=== PATIENT | female | born 1975 | race Two or more races ===

== ENCOUNTER 2019-08-08 18:00 | Inpatient (IN) | payer SELFPAY ==
[~2019-08-08] VITALS: Ht 162.6 cm; Wt 71.7 kg
[2019-08-08] MEDS ORDERED: IV NORMAL SALINE 1000ML BAG 1,000 ML IV SCH (18:54)
[2019-08-08] MEDS ORDERED: ONDANSETRON PF 4 MG/2 ML VIAL. IV ONE (19:00)
--- NOTE | 2019-08-08 19:02 | PHYS DOC ---
Adult General Chief Complaint Chief Complaint: ABDOMINAL PAIN HPI HPI Patient is a 44-year-old female who presents with complaint of right-sided abdominal pain that started yesterday. Patient rates pain at a 10 out of 10 and states the pain is worsened with movement. She admits to nausea but is had no vomiting and also has anorexia. She states the pain radiates into her back. Patient is not sure whether or not she has been running a fever. She denies any chest pain or shortness of breath. She states that nothing is improving her symptoms.[] Review of Systems Review of Systems Constitutional: Denies fever or chills [] Respiratory: Denies cough or shortness of breath [] Cardiovascular: No additional information not addressed in HPI [] GI: Complains of abdominal pain with nausea. Denies vomiting or diarrhea [] : Denies dysuria or hematuria [] Musculoskeletal: Admits to right-sided back pain [] Integument: Denies rash or skin lesions [] Neurologic: Denies headache, focal weakness or sensory changes [] All other systems were reviewed and found to be within normal limits, except as documented in this note. Current Medications Current Medications Current Medications Medications (Trade) Dose Ordered Sig/Sánchez Start Time Stop Time Status Last Admin Dose Admin Info (CONTRAST GIVEN -- Rx MONITORING) 1 each PRN DAILY PRN 08/08/19 20:15 08/10/19 20:14 Iohexol (Omnipaque 300 Mg/ml) 75 ml 1X ONCE 08/08/19 20:15 08/08/19 20:16 DC 08/08/19 20:28 75 ML Morphine Sulfate (Morphine Sulfate) 4 mg PRN Q15MIN PRN 08/08/19 19:00 08/09/19 18:59 08/08/19 19:54 4 MG Ondansetron HCl (Zofran) 4 mg 1X ONCE 08/08/19 19:00 08/08/19 19:01 DC 08/08/19 19:18 4 MG Piperacillin Sod/ Tazobactam Sod 4.5 gm/Sodium Chloride 100 ml @ 200 mls/hr 1X ONCE 08/08/19 20:00 08/08/19 20:29 DC 08/08/19 19:47 200 MLS/HR Sodium Chloride 1,000 ml @ 1,000 mls/hr Q1H 08/08/19 18:54 08/08/19 19:53 DC 08/08/19 19:20 1,000 MLS/HR Allergies Allergies Allergies Coded Allergies Type Severity Reaction Last Updated Verified No Known Drug Allergies 08/08/19 No Physical Exam Physical Exam Constitutional: Well developed, well nourished, no acute distress, non-toxic appearance. [] HENT: Normocephalic, atraumatic, bilateral external ears normal, oropharynx moist, no oral exudates, nose normal. [] Eyes: PERRLA, EOMI, conjunctiva normal, no discharge. [] Neck: Normal range of motion, no tenderness, supple. [] Cardiovascular: Regular rate and rhythm[] Lungs & Thorax: Bilateral breath sounds clear to auscultation [] Abdomen: Bowel sounds diminished, soft, with moderate right lower quadrant tenderness. [] Skin: Warm, dry, no erythema, no rash. [] Extremities: No tenderness, no cyanosis, no clubbing, ROM intact. [] Neurologic: Alert and oriented X 3, no focal deficits noted. [] Current Patient Data Vital Signs Vital Signs Date Time Temp Pulse Resp B/P (MAP) Pulse Ox O2 Delivery O2 Flow Rate FiO2 08/08/19 20:24 86 23 146/68 (94) 87 Room Air 08/08/19 18:52 99.0 99.0 Lab Values Laboratory Tests Test 08/08/19 19:05 08/08/19 19:14 08/08/19 19:32 08/08/19 19:40 White Blood Count 20.3 x10^3/uL (4.0-11.0) H Red Blood Count 4.53 x10^6/uL (3.50-5.40) Hemoglobin 12.8 g/dL (12.0-15.5) Hematocrit 38.1 % (36.0-47.0) Mean Corpuscular Volume 84 fL (79-100) Mean Corpuscular Hemoglobin 28 pg (25-35) Mean Corpuscular Hemoglobin Concent 34 g/dL (31-37) Red Cell Distribution Width 16.9 % (11.5-14.5) H Platelet Count 398 x10^3/uL (140-400) Neutrophils (%) (Auto) 86 % (31-73) H Lymphocytes (%) (Auto) 8 % (24-48) L Monocytes (%) (Auto) 6 % (0-9) Eosinophils (%) (Auto) 0 % (0-3) Basophils (%) (Auto) 0 % (0-3) Neutrophils # (Auto) 17.4 x10^3/uL (1.8-7.7) H Lymphocytes # (Auto) 1.5 x10^3/uL (1.0-4.8) Monocytes # (Auto) 1.2 x10^3/uL (0.0-1.1) H Eosinophils # (Auto) 0.1 x10^3/uL (0.0-0.7) Basophils # (Auto) 0.0 x10^3/uL (0.0-0.2) Segmented Neutrophils % 84 % (35-66) H Band Neutrophils % 1 % (0-9) Lymphocytes % 7 % (24-48) L Monocytes % 8 % (0-10) Toxic Granulation Slight Toxic Vacuolation Slight Platelet Estimate Adequate (ADEQUATE) Urine Collection Type Unknown Urine Color Yellow Urine Clarity Clear Urine pH 6.0 Urine Specific [place] 1.015 Urine Protein 30 mg/dL (NEG-TRACE) Urine Glucose (UA) Negative mg/dL (NEG) Urine Ketones (Stick) Negative mg/dL (NEG) Urine Blood Moderate (NEG) Urine Nitrite Negative (NEG) Urine Bilirubin Negative (NEG) Urine Urobilinogen Dipstick 1.0 mg/dL (0.2 mg/dL) Urine Leukocyte Esterase Large (NEG) Urine RBC Occ /HPF (0-2) Urine WBC >40 /HPF (0-4) Urine Squamous Epithelial Cells Mod /LPF Urine Bacteria Many /HPF (0-FEW) Urine Mucus Mod /LPF POC Urine HCG, Qualitative Hcg negative (Negative) Influenza Type A Antigen Negative (NEGATIVE) Influenza Type B Antigen Negative (NEGATIVE) Sodium Level 141 mmol/L (136-145) Potassium Level 3.7 mmol/L (3.5-5.1) Chloride Level 106 mmol/L (98-107) Carbon Dioxide Level 26 mmol/L (21-32) Anion Gap 9 (6-14) Blood Urea Nitrogen 9 mg/dL (7-20) Creatinine 0.6 mg/dL (0.6-1.0) Estimated GFR (Cockcroft-Gault) 108.1 BUN/Creatinine Ratio 15 (6-20) Glucose Level 112 mg/dL (70-99) H Calcium Level 8.2 mg/dL (8.5-10.1) L Total Bilirubin 0.5 mg/dL (0.2-1.0) Aspartate Amino Transferase (AST) 7 U/L (15-37) L Alanine Aminotransferase (ALT) 15 U/L (14-59) Alkaline Phosphatase 75 U/L (46-116) Total Protein 6.3 g/dL (6.4-8.2) L Albumin 2.9 g/dL (3.4-5.0) L Albumin/Globulin Ratio 0.9 (1.0-1.7) L Lipase 128 U/L (73-393) Laboratory Tests 08/08/19 19:05 Laboratory Tests 08/08/19 19:40 EKG EKG [] Radiology/Procedures Radiology/Procedures [] Impressions: PROCEDURE: CT ABD PELV W/ IV CONTRST ONLY Exam: CT abdomen and pelvis with contrast INDICATION: Abdominal pain TECHNIQUE: Sequential axial images through the abdomen and pelvis obtained following the administration of 75 mL of Omni 300 IV contrast. Sagittal and coronal reformatted images were reconstructed from the axial data and reviewed. Comparisons: None FINDINGS: Heart size is normal. No pericardial effusion. Strandy opacities at the dependent portion the lung bases likely representing atelectasis. No pleural effusion. Liver, spleen, pancreas, gallbladder and adrenals are unremarkable. Kidneys demonstrate symmetric enhancement. No perinephric inflammation or hydronephrosis. No renal or ureteral calculi are identified. Ureteral wall enhancement on the right is noted. Bladder is distended and appears thin-walled. Uterus is moderately enlarged. There is cystic change at the right adnexa. Small amount of free fluid is noted within the abdomen. Large and small bowel are unremarkable. Appendix is normal. No free intra-abdominal air. Abdominal aorta has a normal course and caliber. Abdominal vasculature is patent. No enlarged intra-abdominal lymph nodes are identified. No suspicious osseous lesions or acute fractures. IMPRESSION: 1. Cystic change at the right adnexa, likely follicular change within the right ovary. 2. Trace amount of free fluid at the pelvis, may be physiologic however nonspecific. Exposure: One or more of the following in the visualized dose reduction techniques were utilized for this examination: 1. Automated exposure control 2. Adjustment of the MA and/or KV according to patient size 3. Use of iterative of reconstructive technique Electronically signed by: Rachel Swift MD (08/08/2019 8:37 PM) [facility] DICTATED and SIGNED BY: RACHEL SWIFT MD DATE: 08/08/192036 Course & Med Decision Making Course & Med Decision Making Pertinent Labs and Imaging studies reviewed. (See chart for details) [] Dragon Disclaimer Dragon Disclaimer This electronic medical record was generated, in whole or in part, using a voice recognition dictation system. Departure Departure Impression: Primary Impression: Pyelonephritis Disposition: ADMITTED INPATIENT Admitting Physician: ROSALINDA (Dr. King) Condition: IMPROVED Referrals: VINCENZO TYLER (PCP) LYNDSAY LATHAM Jr., DO Aug 08, 2019 19:02
[2019-08-08 19:18] LABS: BASO % 0 % (0-3); EOS # 0.1 x10^3/uL (0.0-0.7); EOS % 0 % (0-3); HEMATOCRIT 38.1 % (36.0-47.0); HEMOGLOBIN 12.8 g/dL (12.0-15.5); LYMPH # 1.5 x10^3/uL (1.0-4.8); LYMPH % 8 % (24-48); MEAN CORPUSCULAR HEMOGLOBIN 28 pg (25-35); MEAN CORPUSCULAR HGB CONC 34 g/dL (31-37); MEAN CORPUSCULAR VOLUME 84 fL (79-100); MONO # 1.2 x10^3/uL (0.0-1.1); MONO % 6 % (0-9); NEUT # 17.4 x10^3/uL (1.8-7.7); NEUT % 86 % (31-73); PLATELET COUNT 398 x10^3/uL (140-400); RED BLOOD COUNT 4.53 x10^6/uL (3.50-5.40); RED CELL DISTRIBUTION WIDTH 16.9 % (11.5-14.5); WHITE BLOOD COUNT 20.3 x10^3/uL (4.0-11.0)
[2019-08-08] MEDS: MORPHINE SULFATE 4 MG/ML VIAL. IV/SQ PRN ×3 (19:19→19:54)
[2019-08-08 19:28] LABS: BILIRUBIN,URINE NEGATIVE (NEG); CLARITY,URINE CLEAR; COLOR,URINE YELLOW; NITRITE,URINE NEGATIVE (NEG); PROTEIN,URINE 30 mg/dL (NEG-TRACE)
[2019-08-08 19:34] LABS: BACTERIA,URINE MANY /HPF (0-FEW); RBC,URINE OCC /HPF (0-2); WBC,URINE >40 /HPF (0-4)
[2019-08-08 19:35] LABS: SQUAMOUS EPITHELIAL CELL,UR MOD /LPF
[2019-08-08 19:55] LABS: INFLUENZA A PATIENT NEGATIVE (NEGATIVE); INFLUENZA B PATIENT NEGATIVE (NEGATIVE)
[2019-08-08] MEDS ORDERED: PIPERACILLIN/TAZOBACTAM 4.5 GM in IV NORMAL SALINE 100ML 100 ML IV ONE (20:00)
[2019-08-08 20:04] LABS: CALCIUM 8.2 mg/dL (8.5-10.1); CREATININE 0.6 mg/dL (0.6-1.0); GFR 108.1; POTASSIUM 3.7 mmol/L (3.5-5.1)
[2019-08-08 20:09] LABS: ALBUMIN 2.9 g/dL (3.4-5.0); ALBUMIN/GLOBULIN RATIO 0.9 (1.0-1.7); TOTAL BILIRUBIN 0.5 mg/dL (0.2-1.0); TOTAL PROTEIN 6.3 g/dL (6.4-8.2)
[2019-08-08] MEDS ORDERED: IOHEXOL 300 MG/ML 100ML VIAL. IV ONE (20:15)
[2019-08-08] MEDS ORDERED: CONTRAST GIVEN. MC PRN (20:15)
--- NOTE | 2019-08-08 20:40 | RAD ---
Exam: CT abdomen and pelvis with contrast INDICATION: Abdominal pain TECHNIQUE: Sequential axial images through the abdomen and pelvis obtained following the administration of 75 mL of Omni 300 IV contrast. Sagittal and coronal reformatted images were reconstructed from the axial data and reviewed. Comparisons: None FINDINGS: Heart size is normal. No pericardial effusion. Strandy opacities at the dependent portion the lung bases likely representing atelectasis. No pleural effusion. Liver, spleen, pancreas, gallbladder and adrenals are unremarkable. Kidneys demonstrate symmetric enhancement. No perinephric inflammation or hydronephrosis. No renal or ureteral calculi are identified. Ureteral wall enhancement on the right is noted. Bladder is distended and appears thin-walled. Uterus is moderately enlarged. There is cystic change at the right adnexa. Small amount of free fluid is noted within the abdomen. Large and small bowel are unremarkable. Appendix is normal. No free intra-abdominal air. Abdominal aorta has a normal course and caliber. Abdominal vasculature is patent. No enlarged intra-abdominal lymph nodes are identified. No suspicious osseous lesions or acute fractures. IMPRESSION: 1. Cystic change at the right adnexa, likely follicular change within the right ovary. 2. Trace amount of free fluid at the pelvis, may be physiologic however nonspecific. Exposure: One or more of the following in the visualized dose reduction techniques were utilized for this examination: 1. Automated exposure control 2. Adjustment of the MA and/or KV according to patient size 3. Use of iterative of reconstructive technique Electronically signed by: Rachel Trent MD (08/08/2019 8:37 PM) [facility]
[2019-08-08 21:01] LABS: % BANDS 1 % (0-9); % LYMPHS 7 % (24-48); % MONOS 8 % (0-10); % SEGS 84 % (35-66); PLT ESTIMATE ADEQUATE (ADEQUATE); TOXIC GRANULATION SLIGHT; TOXIC VACUOLATION SLIGHT
[2019-08-08] MEDS ORDERED: ACETAMINOPHEN 325 MG TABLET. PO PRN (21:15)
[2019-08-08] MEDS ORDERED: ONDANSETRON PF 4 MG/2 ML VIAL. IV PRN (21:15)
[2019-08-08 22:25] VITALS: BP 95/43
[2019-08-09] MEDS: IV NORMAL SALINE 1000ML BAG 1,000 ML IV SCH ×3 (01:23→17:30)
[2019-08-09] MEDS: MORPHINE SULFATE 4 MG/ML VIAL. IV PRN ×2 (01:24→08:36)
[2019-08-09 03:32] VITALS: BP 110/46
[2019-08-09 04:33] LABS: BASO # 0.1 x10^3/uL (0.0-0.2); BASO % 0 % (0-3); EOS % 0 % (0-3); HEMATOCRIT 32.3 % (36.0-47.0); HEMOGLOBIN 10.7 g/dL (12.0-15.5); LYMPH # 1.3 x10^3/uL (1.0-4.8); LYMPH % 7 % (24-48); MEAN CORPUSCULAR HEMOGLOBIN 28 pg (25-35); MEAN CORPUSCULAR HGB CONC 33 g/dL (31-37); MEAN CORPUSCULAR VOLUME 85 fL (79-100); MONO # 1.1 x10^3/uL (0.0-1.1); MONO % 5 % (0-9); NEUT # 17.4 x10^3/uL (1.8-7.7); NEUT % 88 % (31-73); PLATELET COUNT 309 x10^3/uL (140-400); RED CELL DISTRIBUTION WIDTH 17.4 % (11.5-14.5); WHITE BLOOD COUNT 19.9 x10^3/uL (4.0-11.0)
[2019-08-09] MEDS ORDERED: GEMF600T8 PO (05:15)
[2019-08-09] MEDS ORDERED: FERR325T14 PO (05:15)
[2019-08-09] MEDS ORDERED: ERGO500027 PO (05:15)
[2019-08-09 05:24] LABS: CALCIUM 8.3 mg/dL (8.5-10.1); CREATININE 0.6 mg/dL (0.6-1.0); GFR 108.1; POTASSIUM 3.7 mmol/L (3.5-5.1)
[2019-08-09 07:00] VITALS: BP 95/44
[2019-08-09] MEDS ORDERED: ZOLPIDEM 5 MG TABLET. PO PRN (08:30)
[2019-08-09] MEDS: CELECOXIB 100 MG CAPSULE. PO SCH ×2 (08:35→21:19)
[2019-08-09] MEDS ORDERED: cefTRIAXone IV Push 1 GM VIAL. IVP SCH (09:00)
[2019-08-09] MEDS ORDERED: ERGOCALCIFEROL (VITAMIN D2) 50,000 UNIT CAPSULE. PO SCH (09:00)
[2019-08-09] MEDS: GEMFIBROZIL 600 MG TABLET. PO SCH ×2 (09:17→21:19)
--- NOTE | 2019-08-09 09:42 | PDOC1 ---
History and Physical Date of Admission Date of Admission DATE: 08/09/19 TIME: 09:37 Identification/Chief Complaint Chief Complaint left flank, pain, lower abd pain Source Source: Caregiver, Chart review, Patient History of Present Illness History of Present Illness Prev healthy, only takes dyslipidemia meds, 2 day hx left flank pain, suprapubic pain, some nausea but no emesis or fevers, CT shows non impressive findings (lacks perinephric stranding) But she does have UTI on UA and remarkable left fl ank tenderness. No PCN allergies, WIll give IVF, zosyn, pain med - she does meet criteria for sepsis with no organ dysfcn NO fevers, WBC 2os down to 18 overnight 2 MN stay, non tele bed. SHe speaks minimal japanese, dtrat bedside translates FULL CODE NEver happened before CT shows distended urinary bladder Past Medical History Cardiovascular: Hyperlipidemia Past Surgical History Past Surgical History: No pertinent history Family History Family History: Hypertension Social History Smoke: No ALCOHOL: none Drugs: None Current Problem List Problem List Problems Medical Problems: (1) Pyelonephritis Status: Acute Current Medications Current Medications Current Medications Morphine Sulfate (Morphine Sulfate) 4 mg PRN Q15MIN PRN IV/SQ PAIN GREATER THAN 3/10 Last administered on 08/08/19at 19:54; Start 08/08/19 at 19:00; Stop 08/09/19 at 18:59 Sodium Chloride 1,000 ml @ 1,000 mls/hr Q1H IV Last administered on 08/08/19at 19:20; Start 08/08/19 at 18:54; Stop 08/08/19 at 19:53; Status DC Ondansetron HCl (Zofran) 4 mg 1X ONCE IV Last administered on 08/08/19at 19:18; Start 08/08/19 at 19:00; Stop 08/08/19 at 19:01; Status DC Piperacillin Sod/ Tazobactam Sod 4.5 gm/Sodium Chloride 100 ml @ 200 mls/hr 1X ONCE IV Last administered on 08/08/19at 19:47; Start 08/08/19 at 20:00; Stop 08/08/19 at 20:29; Status DC Iohexol (Omnipaque 300 Mg/ml) 75 ml 1X ONCE IV Last administered on 08/08/19at 20:28; Start 08/08/19 at 20:15; Stop 08/08/19 at 20:16; Status DC Info (CONTRAST GIVEN -- Rx MONITORING) 1 each PRN DAILY PRN MC SEE COMMENTS; Start 08/08/19 at 20:15; Stop 08/10/19 at 20:14 Ondansetron HCl (Zofran) 4 mg PRN Q8HRS PRN IV NAUSEA/VOMITING 1ST CHOICE; Start 08/08/19 at 21:15; Stop 08/09/19 at 08:16; Status DC Morphine Sulfate (Morphine Sulfate) 4 mg PRN Q2HR PRN IV SEVERE PAIN 7-10 Last administered on 08/09/19 08:36; Start 08/08/19 at 21:15; Stop 08/09/19 at 21:14 Sodium Chloride 1,000 ml @ 100 mls/hr Q10H IV Last administered on 08/09/19at 09:22; Start 08/08/19 at 21:30; Stop 08/09/19 at 21:29 Acetaminophen (Tylenol) 650 mg PRN Q4HRS PRN PO FEVER Last administered on 08/09/19at 03:55; Start 08/08/19 at 21:15; Stop 08/09/19 at 21:14 Ondansetron HCl (Zofran) 4 mg PRN Q6HRS PRN IV NAUSEA/VOMITING 1ST CHOICE; Start 08/09/19 at 08:15 Ceftriaxone Sodium (Rocephin) 1 gm Q24H IVP Last administered on 08/09/19at 09:18; Start 08/09/19 at 09:00 Ergocalciferol (Vitamin D2) 50,000 unit WEEKLY PO Last administered on 1 at 08:35; Start 08/09/19 at 09:00 Ferrous Sulfate (Feosol) 325 mg HS PO ; Start 08/09/19 at 21:00 Gemfibrozil (Lopid) 600 mg BID PO Last administered on 08/09/19at 09:17; Start 08/09/19 at 09:00 Celecoxib (CeleBREX) 100 mg BID PO Last administered on 08/09/19at 08:35; Start 08/09/19 at 09:00 Acetaminophen/ Hydrocodone Bitart (Lortab 5/325) 1 tab PRN Q4HRS PRN PO MODER ATE PAIN; Start 08/09/19 at 08:30 Zolpidem Tartrate (Ambien) 5 mg PRN QHS PRN PO INSOMNIA; Start 08/09/19 at 08:30 Active Scripts Active Reported Gemfibrozil 600 Mg Tablet 600 Mg PO BID Vitamin D2 (Ergocalciferol (Vitamin D2)) 50,000 Unit Capsule 1 Cap PO WEEKLY 28 Days Ferrous Sulfate 325 Mg Tablet 1 Tab PO HS Allergies Allergies: Coded Allergies: No Known Drug Allergies (Unverified , 08/08/19) ROS Review of System as per hPI, rest 14 pt neg Physical Exam General: Alert, Oriented X3, Cooperative, No acute distress, Other (indiscomfort but not in distress- less interested in food) HEENT: Atraumatic, PERRLA Lungs: Clear to auscultation Heart: S1S2, RRR, no thrills, no rubs, no gallops, no murmurs Cardiovascular: S1, S2 Breasts: Normal, Rt breast nml w/o mass, Lt breast nml w/o mass, Nipples normal Abdomen: Normal bowel sounds, Soft, No hepatosplenomegaly, No masses, Other (left CVA tenderness) Rectal Exam: not examined PELVIC: Nml ext genitalia Extremities: No clubbing, No cyanosis, No edema, Normal pulses, No tenderness/swelling Skin: No rashes, No breakdown, No significant lesion Neuro: Normal gait, Normal speech, Strength at 5/5 X4 ext, Normal tone, Sensation intact, Cranial nerves 3-12 NL, Reflexes 2+ Psych/Mental Status: Mental status NL, Mood NL Vitals Vitals Vital Signs Date Time Temp Pulse Resp B/P (MAP) Pulse Ox O2 Delivery O2 Flow Rate FiO2 08/09/19 08:36 Room Air 08/09/19 07:00 97.9 68 16 95/44 (61) 97 97.9 Labs Labs Laboratory Tests Test 08/08/19 19:05 08/08/19 19:14 08/08/19 19:32 08/08/19 19:40 White Blood Count 20.3 x10^3/uL (4.0-11.0) Red Blood Count 4.53 x10^6/uL (3.50-5.40) Hemoglobin 12.8 g/dL (12.0-15.5) Hematocrit 38.1 % (36.0-47.0) Mean Corpuscular Volume 84 fL (79-100) Mean Corpuscular Hemoglobin 28 pg (25-35) Mean Corpuscular Hemoglobin Concent 34 g/dL (31-37) Red Cell Distribution Width 16.9 % (11.5-14.5) Platelet Count 398 x10^3/uL (140-400) Neutrophils (%) (Auto) 86 % (31-73) Lymphocytes (%) (Auto) 8 % (24-48) Monocytes (%) (Auto) 6 % (0-9) Eosinophils (%) (Auto) 0 % (0-3) Basophils (%) (Auto) 0 % (0-3) Neutrophils # (Auto) 17.4 x10^3/uL (1.8-7.7) Lymphocytes # (Auto) 1.5 x10^3/uL (1.0-4.8) Monocytes # (Auto) 1.2 x10^3/uL (0.0-1.1) Eosinophils # (Auto) 0.1 x10^3/uL (0.0-0.7) Basophils # (Auto) 0.0 x10^3/uL (0.0-0.2) Segmented Neutrophils % 84 % (35-66) Band Neutrophils % 1 % (0-9) Lymphocytes % 7 % (24-48) Monocytes % 8 % (0-10) Toxic Granulation Slight Toxic Vacuolation Slight Platelet Estimate Adequate (ADEQUATE) Urine Collection Type Unknown Urine Color Yellow Urine Clarity Clear Urine pH 6.0 Urine Specific [place] 1.015 Urine Protein 30 mg/dL (NEG-TRACE) Urine Glucose (UA) Negative mg/dL (NEG) Urine Ketones (Stick) Negative mg/dL (NEG) Urine Blood Moderate (NEG) Urine Nitrite Negative (NEG) Urine Bilirubin Negative (NEG) Urine Urobilinogen Dipstick 1.0 mg/dL (0.2 mg/dL) Urine Leukocyte Esterase Large (NEG) Urine RBC Occ /HPF (0-2) Urine WBC >40 /HPF (0-4) Urine Squamous Epithelial Cells Mod /LPF Urine Bacteria Many /HPF (0-FEW) Urine Mucus Mod /LPF Bedside Urine HCG, Qualitative Hcg negative (Negative) Influenza Type A Antigen Negative (NEGATIVE) Influenza Type B Antigen Negative (NEGATIVE) Sodium Level 141 mmol/L (136-145) Potassium Level 3.7 mmol/L (3.5-5.1) Chloride Level 106 mmol/L (98-107) Carbon Dioxide Level 26 mmol/L (21-32) Anion Gap 9 (6-14) Blood Urea Nitrogen 9 mg/dL (7-20) Creatinine 0.6 mg/dL (0.6-1.0) Estimated GFR (Cockcroft-Gault) 108.1 BUN/Creatinine Ratio 15 (6-20) Glucose Level 112 mg/dL (70-99) Calcium Level 8.2 mg/dL (8.5-10.1) Total Bilirubin 0.5 mg/dL (0.2-1.0) Aspartate Amino Transf (AST/SGOT) 7 U/L (15-37) Alanine Aminotransferase (ALT/SGPT) 15 U/L (14-59) Alkaline Phosphatase 75 U/L (46-116) Total Protein 6.3 g/dL (6.4-8.2) Albumin 2.9 g/dL (3.4-5.0) Albumin/Globulin Ratio 0.9 (1.0-1.7) Lipase 128 U/L (73-393) Test 08/09/19 03:50 White Blood Count 19.9 x10^3/uL (4.0-11.0) Red Blood Count 3.80 x10^6/uL (3.50-5.40) Hemoglobin 10.7 g/dL (12.0-15.5) Hematocrit 32.3 % (36.0-47.0) Mean Corpuscular Volume 85 fL (79-100) Mean Corpuscular Hemoglobin 28 pg (25-35) Mean Corpuscular Hemoglobin Concent 33 g/dL (31-37) Red Cell Distribution Width 17.4 % (11.5-14.5) Platelet Count 309 x10^3/uL (140-400) Neutrophils (%) (Auto) 88 % (31-73) Lymphocytes (%) (Auto) 7 % (24-48) Monocytes (%) (Auto) 5 % (0-9) Eosinophils (%) (Auto) 0 % (0-3) Basophils (%) (Auto) 0 % (0-3) Neutrophils # (Auto) 17.4 x10^3/uL (1.8-7.7) Lymphocytes # (Auto) 1.3 x10^3/uL (1.0-4.8) Monocytes # (Auto) 1.1 x10^3/uL (0.0-1.1) Eosinophils # (Auto) 0.0 x10^3/uL (0.0-0.7) Basophils # (Auto) 0.1 x10^3/uL (0.0-0.2) Sodium Level 139 mmol/L (136-145) Potassium Level 3.7 mmol/L (3.5-5.1) Chloride Level 104 mmol/L (98-107) Carbon Dioxide Level 25 mmol/L (21-32) Anion Gap 10 (6-14) Blood Urea Nitrogen 10 mg/dL (7-20) Creatinine 0.6 mg/dL (0.6-1.0) Estimated GFR (Cockcroft-Gault) 108.1 Glucose Level 108 mg/dL (70-99) Calcium Level 8.3 mg/dL (8.5-10.1) Laboratory Tests Test 08/08/19 19:05 08/08/19 19:14 08/08/19 19:32 08/08/19 19:40 White Blood Count 20.3 x10^3/uL (4.0-11.0) Red Blood Count 4.53 x10^6/uL (3.50-5.40) Hemoglobin 12.8 g/dL (12.0-15.5) Hematocrit 38.1 % (36.0-47.0) Mean Corpuscular Volume 84 fL (79-100) Mean Corpuscular Hemoglobin 28 pg (25-35) Mean Corpuscular Hemoglobin Concent 34 g/dL (31-37) Red Cell Distribution Width 16.9 % (11.5-14.5) Platelet Count 398 x10^3/uL (140-400) Neutrophils (%) (Auto) 86 % (31-73) Lymphocytes (%) (Auto) 8 % (24-48) Monocytes (%) (Auto) 6 % (0-9) Eosinophils (%) (Auto) 0 % (0-3) Basophils (%) (Auto) 0 % (0-3) Neutrophils # (Auto) 17.4 x10^3/uL (1.8-7.7) Lymphocytes # (Auto) 1.5 x10^3/uL (1.0-4.8) Monocytes # (Auto) 1.2 x10^3/uL (0.0-1.1) Eosinophils # (Auto) 0.1 x10^3/uL (0.0-0.7) Basophils # (Auto) 0.0 x10^3/uL (0.0-0.2) Segmented Neutrophils % 84 % (35-66) Band Neutrophils % 1 % (0-9) Lymphocytes % 7 % (24-48) Monocytes % 8 % (0-10) Toxic Granulation Slight Toxic Vacuolation Slight Platelet Estimate Adequate (ADEQUATE) Urine Collection Type Unknown Urine Color Yellow Urine Clarity Clear Urine pH 6.0 Urine Specific [place] 1.015 Urine Protein 30 mg/dL (NEG-TRACE) Urine Glucose (UA) Negative mg/dL (NEG) Urine Ketones (Stick) Negative mg/dL (NEG) Urine Blood Moderate (NEG) Urine Nitrite Negative (NEG) Urine Bilirubin Negative (NEG) Urine Urobilinogen Dipstick 1.0 mg/dL (0.2 mg/dL) Urine Leukocyte Esterase Large (NEG) Urine RBC Occ /HPF (0-2) Urine WBC >40 /HPF (0-4) Urine Squamous Epithelial Cells Mod /LPF Urine Bacteria Many /HPF (0-FEW) Urine Mucus Mod /LPF Bedside Urine HCG, Qualitative Hcg negative (Negative) Influenza Type A Antigen Negative (NEGATIVE) Influenza Type B Antigen Negative (NEGATIVE) Sodium Level 141 mmol/L (136-145) Potassium Level 3.7 mmol/L (3.5-5.1) Chloride Level 106 mmol/L (98-107) Carbon Dioxide Level 26 mmol/L (21-32) Anion Gap 9 (6-14) Blood Urea Nitrogen 9 mg/dL (7-20) Creatinine 0.6 mg/dL (0.6-1.0) Estimated GFR (Cockcroft-Gault) 108.1 BUN/Creatinine Ratio 15 (6-20) Glucose Level 112 mg/dL (70-99) Calcium Level 8.2 mg/dL (8.5-10.1) Total Bilirubin 0.5 mg/dL (0.2-1.0) Aspartate Amino Transf (AST/SGOT) 7 U/L (15-37) Alanine Aminotransferase (ALT/SGPT) 15 U/L (14-59) Alkaline Phosphatase 75 U/L (46-116) Total Protein 6.3 g/dL (6.4-8.2) Albumin 2.9 g/dL (3.4-5.0) Albumin/Globulin Ratio 0.9 (1.0-1.7) Lipase 128 U/L (73-393) Test 08/09/19 03:50 White Blood Count 19.9 x10^3/uL (4.0-11.0) Red Blood Count 3.80 x10^6/uL (3.50-5.40) Hemoglobin 10.7 g/dL (12.0-15.5) Hematocrit 32.3 % (36.0-47.0) Mean Corpuscular Volume 85 fL (79-100) Mean Corpuscular Hemoglobin 28 pg (25-35) Mean Corpuscular Hemoglobin Concent 33 g/dL (31-37) Red Cell Distribution Width 17.4 % (11.5-14.5) Platelet Count 309 x10^3/uL (140-400) Neutrophils (%) (Auto) 88 % (31-73) Lymphocytes (%) (Auto) 7 % (24-48) Monocytes (%) (Auto) 5 % (0-9) Eosinophils (%) (Auto) 0 % (0-3) Basophils (%) (Auto) 0 % (0-3) Neutrophils # (Auto) 17.4 x10^3/uL (1.8-7.7) Lymphocytes # (Auto) 1.3 x10^3/uL (1.0-4.8) Monocytes # (Auto) 1.1 x10^3/uL (0.0-1.1) Eosinophils # (Auto) 0.0 x10^3/uL (0.0-0.7) Basophils # (Auto) 0.1 x10^3/uL (0.0-0.2) Sodium Level 139 mmol/L (136-145) Potassium Level 3.7 mmol/L (3.5-5.1) Chloride Level 104 mmol/L (98-107) Carbon Dioxide Level 25 mmol/L (21-32) Anion Gap 10 (6-14) Blood Urea Nitrogen 10 mg/dL (7-20) Creatinine 0.6 mg/dL (0.6-1.0) Estimated GFR (Cockcroft-Gault) 108.1 Glucose Level 108 mg/dL (70-99) Calcium Level 8.3 mg/dL (8.5-10.1) VTE Prophylaxis Ordered VTE Prophylaxis Devices: Yes VTE Pharmacological Prophylaxi: Yes Assessment/Plan Assessment/Plan 1. Pyelonephritis, clinically 2. DYslipimdeia on meds 3. Sepsis with NO organ dysfcn 4, Mod PCM PLAN: IV zosyn, ok for reg diet COnt home meds PAIn meds, IVF Urine cx Dw dtr and RN at bedside NYASIA ROBERTS MD Aug 09, 2019 09:42
[2019-08-09] MEDS ORDERED: MORPHINE SULFATE 2 MG/ML VIAL. IV PRN (09:45)
[2019-08-09] MEDS ORDERED: PIP/TAZO PER PHARMACY MC PRN (09:45)
[2019-08-09] MEDS: PIPERACILLIN/TAZOBACTAM 3.375 GM in IV NORMAL SALINE 50ML 50 ML IV SCH ×2 (10:19→17:53)
--- NOTE | 2019-08-09 10:30 | NUR ---
Pt. voided x 1. PVR 417 cc. Pt. denies discomfort.
--- NOTE | 2019-08-09 10:55 | NUR ---
SS following for discharge planning. SS reviewed pt chart. Pt is self pay pt. [facility] following for self pay status. Per HCFS, pt is NOT A CITIZEN. Pt is from home with spouse and is currently on room air. SS will continue to follow for discharge planning.
[2019-08-09 11:00] VITALS: BP 105/51
[2019-08-09] MEDS: HYDROcodone/APAP 5/325MG 1 TAB TABLET PO PRN (11:50)
[2019-08-09 15:00] VITALS: BP 102/59
--- NOTE | 2019-08-09 15:25 | NUR ---
Pt voided 320 cc, PVR 542 cc.
[2019-08-09] MEDS: ONDANSETRON PF 4 MG/2 ML VIAL. IV PRN ×2 (15:31→22:10)
--- NOTE | 2019-08-09 16:00 | NUR ---
Pt. straight cathed, 500cc clear yellow returned.
--- NOTE | 2019-08-09 18:00 | NUR ---
Pt. voided 75cc, PVR 387.
--- NOTE | 2019-08-09 18:05 | NUR ---
Dr. Rogers notified of pt's urinary retention. Orders received.
[2019-08-09 19:00] VITALS: BP 108/54
[2019-08-09] MEDS: FERROUS SULFATE 325 MG TABLET. PO SCH (21:19)
[2019-08-09] MEDS: LACTOBACILLUS RHAMNOSUS GG 1 CAPSULE. PO SCH (21:19)
[2019-08-09 23:00] VITALS: BP 112/63
[2019-08-10 03:06] VITALS: BP 101/54
[2019-08-10 05:28] LABS: BASO # 0.1 x10^3/uL (0.0-0.2); BASO % 0 % (0-3); EOS # 0.1 x10^3/uL (0.0-0.7); EOS % 1 % (0-3); HEMOGLOBIN 9.6 g/dL (12.0-15.5); LYMPH # 1.3 x10^3/uL (1.0-4.8); LYMPH % 10 % (24-48); MEAN CORPUSCULAR HEMOGLOBIN 28 pg (25-35); MEAN CORPUSCULAR HGB CONC 33 g/dL (31-37); MEAN CORPUSCULAR VOLUME 86 fL (79-100); MONO # 0.7 x10^3/uL (0.0-1.1); MONO % 5 % (0-9); NEUT # 11.7 x10^3/uL (1.8-7.7); NEUT % 84 % (31-73); PLATELET COUNT 244 x10^3/uL (140-400); RED BLOOD COUNT 3.37 x10^6/uL (3.50-5.40); RED CELL DISTRIBUTION WIDTH 17.7 % (11.5-14.5); WHITE BLOOD COUNT 13.8 x10^3/uL (4.0-11.0)
[2019-08-10] MEDS: PIPERACILLIN/TAZOBACTAM 3.375 GM in IV NORMAL SALINE 50ML 50 ML IV SCH ×6 (06:23→23:45)
[2019-08-10 07:00] VITALS: BP 101/56
[2019-08-10] MEDS: IV NORMAL SALINE 1000ML BAG 1,000 ML IV SCH ×2 (08:33→20:00)
[2019-08-10] MEDS: LACTOBACILLUS RHAMNOSUS GG 1 CAPSULE. PO SCH ×2 (08:34→23:42)
[2019-08-10] MEDS: CELECOXIB 100 MG CAPSULE. PO SCH ×2 (08:34→23:42)
[2019-08-10] MEDS: GEMFIBROZIL 600 MG TABLET. PO SCH ×2 (08:34→23:42)
--- NOTE | 2019-08-10 09:03 | PDOC ---
PROGRESS NOTES Chief Complaint Chief Complaint 1. Pyelonephritis, clinically 2. DYslipidemia on meds 3. Sepsis with NO organ dysfcn 4, Mod PCM 5. Urinary retention calix 08/09 History of Present Illness History of Present Illness SLightly better NO more rt flank pain' Urine cx still pending Getting zosyn NO fevers Eating only a little NEeded calix yesterday bec of retention WBC down to 13 from 18 from 20s PLAN: Cont zosyn, await urine cx CBC again tmr Dc calix AMbulate ad gilbert WOuld keep IVF running Vitals Vitals Vital Signs Date Time Temp Pulse Resp B/P (MAP) Pulse Ox O2 Delivery O2 Flow Rate FiO2 08/10/19 07:00 98.7 66 16 101/56 (71) 96 Room Air 98.7 Physical Exam General: Alert, Oriented X3, Cooperative, No acute distress, Other (indiscomfort but not in distress- less interested in food) Abdomen: Normal bowel sounds, Soft, No hepatosplenomegaly, No masses, Other (left CVA tenderness) Extremities: No clubbing, No cyanosis, No edema, Normal pulses, No tenderness/swelling Skin: No rashes, No breakdown, No significant lesion Labs LABS Laboratory Tests Test 08/10/19 04:45 White Blood Count 13.8 x10^3/uL (4.0-11.0) Red Blood Count 3.37 x10^6/uL (3.50-5.40) Hemoglobin 9.6 g/dL (12.0-15.5) Hematocrit 29.0 % (36.0-47.0) Mean Corpuscular Volume 86 fL (79-100) Mean Corpuscular Hemoglobin 28 pg (25-35) Mean Corpuscular Hemoglobin Concent 33 g/dL (31-37) Red Cell Distribution Width 17.7 % (11.5-14.5) Platelet Count 244 x10^3/uL (140-400) Neutrophils (%) (Auto) 84 % (31-73) Lymphocytes (%) (Auto) 10 % (24-48) Monocytes (%) (Auto) 5 % (0-9) Eosinophils (%) (Auto) 1 % (0-3) Basophils (%) (Auto) 0 % (0-3) Neutrophils # (Auto) 11.7 x10^3/uL (1.8-7.7) Lymphocytes # (Auto) 1.3 x10^3/uL (1.0-4.8) Monocytes # (Auto) 0.7 x10^3/uL (0.0-1.1) Eosinophils # (Auto) 0.1 x10^3/uL (0.0-0.7) Basophils # (Auto) 0.1 x10^3/uL (0.0-0.2) Review of Systems Review of Systems weak, poor po, rest of 14 pt neg Assessment and Plan Assessmemt and Plan Problems Medical Problems: (1) Pyelonephritis Status: Acute Comment Review of Relevant I have reviewed the following items juan alberto (where applicable) has been applied. Labs Laboratory Tests Test 08/08/19 19:05 08/08/19 19:14 08/08/19 19:32 08/08/19 19:40 White Blood Count 20.3 x10^3/uL (4.0-11.0) Red Blood Count 4.53 x10^6/uL (3.50-5.40) Hemoglobin 12.8 g/dL (12.0-15.5) Hematocrit 38.1 % (36.0-47.0) Mean Corpuscular Volume 84 fL (79-100) Mean Corpuscular Hemoglobin 28 pg (25-35) Mean Corpuscular Hemoglobin Concent 34 g/dL (31-37) Red Cell Distribution Width 16.9 % (11.5-14.5) Platelet Count 398 x10^3/uL (140-400) Neutrophils (%) (Auto) 86 % (31-73) Lymphocytes (%) (Auto) 8 % (24-48) Monocytes (%) (Auto) 6 % (0-9) Eosinophils (%) (Auto) 0 % (0-3) Basophils (%) (Auto) 0 % (0-3) Neutrophils # (Auto) 17.4 x10^3/uL (1.8-7.7) Lymphocytes # (Auto) 1.5 x10^3/uL (1.0-4.8) Monocytes # (Auto) 1.2 x10^3/uL (0.0-1.1) Eosinophils # (Auto) 0.1 x10^3/uL (0.0-0.7) Basophils # (Auto) 0.0 x10^3/uL (0.0-0.2) Segmented Neutrophils % 84 % (35-66) Band Neutrophils % 1 % (0-9) Lymphocytes % 7 % (24-48) Monocytes % 8 % (0-10) Toxic Granulation Slight Toxic Vacuolation Slight Platelet Estimate Adequate (ADEQUATE) Urine Collection Type Unknown Urine Color Yellow Urine Clarity Clear Urine pH 6.0 Urine Specific [place] 1.015 Urine Protein 30 mg/dL (NEG-TRACE) Urine Glucose (UA) Negative mg/dL (NEG) Urine Ketones (Stick) Negative mg/dL (NEG) Urine Blood Moderate (NEG) Urine Nitrite Negative (NEG) Urine Bilirubin Negative (NEG) Urine Urobilinogen Dipstick 1.0 mg/dL (0.2 mg/dL) Urine Leukocyte Esterase Large (NEG) Urine RBC Occ /HPF (0-2) Urine WBC >40 /HPF (0-4) Urine Squamous Epithelial Cells Mod /LPF Urine Bacteria Many /HPF (0-FEW) Urine Mucus Mod /LPF Bedside Urine HCG, Qualitative Hcg negative (Negative) Influenza Type A Antigen Negative (NEGATIVE) Influenza Type B Antigen Negative (NEGATIVE) Sodium Level 141 mmol/L (136-145) Potassium Level 3.7 mmol/L (3.5-5.1) Chloride Level 106 mmol/L (98-107) Carbon Dioxide Level 26 mmol/L (21-32) Anion Gap 9 (6-14) Blood Urea Nitrogen 9 mg/dL (7-20) Creatinine 0.6 mg/dL (0.6-1.0) Estimated GFR (Cockcroft-Gault) 108.1 BUN/Creatinine Ratio 15 (6-20) Glucose Level 112 mg/dL (70-99) Calcium Level 8.2 mg/dL (8.5-10.1) Total Bilirubin 0.5 mg/dL (0.2-1.0) Aspartate Amino Transf (AST/SGOT) 7 U/L (15-37) Alanine Aminotransferase (ALT/SGPT) 15 U/L (14-59) Alkaline Phosphatase 75 U/L (46-116) Total Protein 6.3 g/dL (6.4-8.2) Albumin 2.9 g/dL (3.4-5.0) Albumin/Globulin Ratio 0.9 (1.0-1.7) Lipase 128 U/L (73-393) Test 10/11/19 03:50 08/10/19 04:45 White Blood Count 19.9 x10^3/uL (4.0-11.0) 13.8 x10^3/uL (4.0-11.0) Red Blood Count 3.80 x10^6/uL (3.50-5.40) 3.37 x10^6/uL (3.50-5.40) Hemoglobin 10.7 g/dL (12.0-15.5) 9.6 g/dL (12.0-15.5) Hematocrit 32.3 % (36.0-47.0) 29.0 % (36.0-47.0) Mean Corpuscular Volume 85 fL (79-100) 86 fL (79-100) Mean Corpuscular Hemoglobin 28 pg (25-35) 28 pg (25-35) Mean Corpuscular Hemoglobin Concent 33 g/dL (31-37) 33 g/dL (31-37) Red Cell Distribution Width 17.4 % (11.5-14.5) 17.7 % (11.5-14.5) Platelet Count 309 x10^3/uL (140-400) 244 x10^3/uL (140-400) Neutrophils (%) (Auto) 88 % (31-73) 84 % (31-73) Lymphocytes (%) (Auto) 7 % (24-48) 10 % (24-48) Monocytes (%) (Auto) 5 % (0-9) 5 % (0-9) Eosinophils (%) (Auto) 0 % (0-3) 1 % (0-3) Basophils (%) (Auto) 0 % (0-3) 0 % (0-3) Neutrophils # (Auto) 17.4 x10^3/uL (1.8-7.7) 11.7 x10^3/uL (1.8-7.7) Lymphocytes # (Auto) 1.3 x10^3/uL (1.0-4.8) 1.3 x10^3/uL (1.0-4.8) Monocytes # (Auto) 1.1 x10^3/uL (0.0-1.1) 0.7 x10^3/uL (0.0-1.1) Eosinophils # (Auto) 0.0 x10^3/uL (0.0-0.7) 0.1 x10^3/uL (0.0-0.7) Basophils # (Auto) 0.1 x10^3/uL (0.0-0.2) 0.1 x10^3/uL (0.0-0.2) Sodium Level 139 mmol/L (136-145) Potassium Level 3.7 mmol/L (3.5-5.1) Chloride Level 104 mmol/L (98-107) Carbon Dioxide Level 25 mmol/L (21-32) Anion Gap 10 (6-14) Blood Urea Nitrogen 10 mg/dL (7-20) Creatinine 0.6 mg/dL (0.6-1.0) Estimated GFR (Cockcroft-Gault) 108.1 Glucose Level 108 mg/dL (70-99) Calcium Level 8.3 mg/dL (8.5-10.1) Laboratory Tests Test 08/10/19 04:45 White Blood Count 13.8 x10^3/uL (4.0-11.0) Red Blood Count 3.37 x10^6/uL (3.50-5.40) Hemoglobin 9.6 g/dL (12.0-15.5) Hematocrit 29.0 % (36.0-47.0) Mean Corpuscular Volume 86 fL (79-100) Mean Corpuscular Hemoglobin 28 pg (25-35) Mean Corpuscular Hemoglobin Concent 33 g/dL (31-37) Red Cell Distribution Width 17.7 % (11.5-14.5) Platelet Count 244 x10^3/uL (140-400) Neutrophils (%) (Auto) 84 % (31-73) Lymphocytes (%) (Auto) 10 % (24-48) Monocytes (%) (Auto) 5 % (0-9) Eosinophils (%) (Auto) 1 % (0-3) Basophils (%) (Auto) 0 % (0-3) Neutrophils # (Auto) 11.7 x10^3/uL (1.8-7.7) Lymphocytes # (Auto) 1.3 x10^3/uL (1.0-4.8) Monocytes # (Auto) 0.7 x10^3/uL (0.0-1.1) Eosinophils # (Auto) 0.1 x10^3/uL (0.0-0.7) Basophils # (Auto) 0.1 x10^3/uL (0.0-0.2) Medications Current Medications Morphine Sulfate (Morphine Sulfate) 4 mg PRN Q15MIN PRN IV/SQ PAIN GREATER THAN 3/10 Last administered on 08/08/19at 19:54; Start 08/08/19 at 19:00; Stop 08/09/19 at 09:52; Status DC Sodium Chloride 1,000 ml @ 1,000 mls/hr Q1H IV Last administered on 08/08/19at 19:20; Start 08/08/19 at 18:54; Stop 08/08/19 at 19:53; Status DC Ondansetron HCl (Zofran) 4 mg 1X ONCE IV Last administered on 08/08/19at 19:18; Start 08/08/19 at 19:00; Stop 08/08/19 at 19:01; Status DC Piperacillin Sod/ Tazobactam Sod 4.5 gm/Sodium Chloride 100 ml @ 200 mls/hr 1X ONCE IV Last administered on 08/08/19at 19:47; Start 08/08/19 at 20:00; Stop 08/08/19 at 20:29; Status DC Iohexol (Omnipaque 300 Mg/ml) 75 ml 1X ONCE IV Last administered on 08/08/19at 20:28; Start 08/08/19 at 20:15; Stop 08/08/19 at 20:16; Status DC Info (CONTRAST GIVEN -- Rx MONITORING) 1 each PRN DAILY PRN MC SEE COMMENTS; Start 08/08/19 at 20:15; Stop 08/10/19 at 20:14 Ondansetron HCl (Zofran) 4 mg PRN Q8HRS PRN IV NAUSEA/VOMITING 1ST CHOICE; Start 08/08/19 at 21:15; Stop 08/09/19 at 08:16; Status DC Morphine Sulfate (Morphine Sulfate) 4 mg PRN Q2HR PRN IV SEVERE PAIN 7-10 Last administered on 08/09/19at 08:36; Start 08/08/19 at 21:15; Stop 08/09/19 at 09:52; Status DC Sodium Chloride 1,000 ml @ 100 mls/hr Q10H IV Last administered on 08/09/19 09:22; Start 08/08/19 at 21:30; Stop 08/09/19 at 21:29; Status DC Acetaminophen (Tylenol) 650 mg PRN Q4HRS PRN PO FEVER Last administered on 08/09/19 03:55; Start 08/08/19 at 21:15; Stop 08/09/19 at 21:14; Status DC Ondansetron HCl (Zofran) 4 mg PRN Q6HRS PRN IV NAUSEA/VOMITING 1ST CHOICE Last administered on 08/09/19 22:10; Start 08/09/19 at 08:15 Ceftriaxone Sodium (Rocephin) 1 gm Q24H IVP Last administered on 08/09/19 09:18; Start 08/09/19 at 09:00; Stop 08/09/19 at 09:38; Status DC Ergocalciferol (Vitamin D2) 50,000 unit WEEKLY PO Last administered on 08/09/19 08:35; Start 08/09/19 at 09:00 Ferrous Sulfate (Feosol) 325 mg HS PO Last administered on 08/09/19 21:19; Start 08/09/19 at 21:00 Gemfibrozil (Lopid) 600 mg BID PO Last administered on 08/10/19 08:34; Start 08/09/19 at 09:00 Celecoxib (CeleBREX) 100 mg BID PO Last administered on 08/10/19 08:34; Start 08/09/19 at 09:00 Acetaminophen/ Hydrocodone Bitart (Lortab 5/325) 1 tab PRN Q4HRS PRN PO MODE RATE PAIN Last administered on 08/09/19 11:50; Start 08/09/19 at 08:30 Zolpidem Tartrate (Ambien) 5 mg PRN QHS PRN PO INSOMNIA; Start 08/09/19 at 08:30 Piperacillin Sod/ Tazobactam Sod (Zosyn Per Pharmacy) 1 each PRN DAILY PRN MC SEE COMMENTS; Start 08/09/19 at 09:45 Piperacillin Sod/ Tazobactam Sod 3.375 gm/Sodium Chloride 50 ml @ 100 mls/hr Q6HRS IV Last administered on 10/12/19at 06:23; Start 08/09/19 at 10:00 Morphine Sulfate (Morphine Sulfate) 2 mg PRN Q2HR PRN IV MODERATE TO SEVERE PAIN; Start 08/09/19 at 09:45 Lactobacillus Rhamnosus (Culturelle) 1 cap BID PO Last administered on 08/10/19at 08:34; Start 08/09/19 at 21:00 Sodium Chloride 1,000 ml @ 100 mls/hr Q10H IV Last administered on 08/10/19at 08:33; Start 08/10/19 at 08:30 Active Scripts Active Reported Gemfibrozil 600 Mg Tablet 600 Mg PO BID Vitamin D2 (Ergocalciferol (Vitamin D2)) 50,000 Unit Capsule 1 Cap PO WEEKLY 28 Days Ferrous Sulfate 325 Mg Tablet 1 Tab PO HS Vitals/I & O Vital Sign - Last 24 Hours 08/09/19 08/09/19 08/09/19 08/09/19 11:00 11:50 13:09 15:00 Temp 98.2 97.7 98.2 97.7 Pulse 67 63 Resp 18 16 B/P (MAP) 105/51 (69) 102/59 (73) Pulse Ox 96 95 O2 Delivery Room Air Room Air Room Air Room Air 08/09/19 08/09/19 08/09/19 08/10/19 19:00 20:00 23:00 03:06 Temp 98.4 97.7 98.4 98.4 97.7 98.4 Pulse 67 77 64 Resp 18 18 18 B/P (MAP) 108/54 (72) 112/63 (79) 101/54 (70) Pulse Ox 97 95 97 O2 Delivery Room Air Room Air Room Air Room Air 08/10/19 07:00 Temp 98.7 98.7 Pulse 66 Resp 16 B/P (MAP) 101/56 (71) Pulse Ox 96 O2 Delivery Room Air Intake and Output 08/09/19 08/09/19 08/10/19 15:00 23:00 07:00 Output Total 500 ml 800 ml Balance -500 ml -800 ml NYASIA ROBERTS MD Aug 10, 2019 09:03
[2019-08-10 11:00] VITALS: BP 110/66
[2019-08-10 15:00] VITALS: BP 128/71
[2019-08-10 19:00] VITALS: BP 130/72
[2019-08-10] MEDS: ONDANSETRON PF 4 MG/2 ML VIAL. IV PRN (21:51)
[2019-08-10 23:00] VITALS: BP 113/59
[2019-08-10] MEDS: FERROUS SULFATE 325 MG TABLET. PO SCH (23:42)
[2019-08-11 03:00] VITALS: BP 102/57
[2019-08-11] MEDS: IV NORMAL SALINE 1000ML BAG 1,000 ML IV SCH ×2 (04:30→12:02)
[2019-08-11] MEDS: PIPERACILLIN/TAZOBACTAM 3.375 GM in IV NORMAL SALINE 50ML 50 ML IV SCH ×4 (06:04→23:55)
[2019-08-11 07:00] VITALS: BP 112/61
[2019-08-11 07:27] LABS: BASO # 0.1 x10^3/uL (0.0-0.2); BASO % 1 % (0-3); EOS # 0.1 x10^3/uL (0.0-0.7); EOS % 1 % (0-3); HEMATOCRIT 29.8 % (36.0-47.0); LYMPH # 1.5 x10^3/uL (1.0-4.8); LYMPH % 15 % (24-48); MEAN CORPUSCULAR HEMOGLOBIN 29 pg (25-35); MEAN CORPUSCULAR HGB CONC 34 g/dL (31-37); MEAN CORPUSCULAR VOLUME 85 fL (79-100); MONO # 0.6 x10^3/uL (0.0-1.1); MONO % 6 % (0-9); NEUT # 7.8 x10^3/uL (1.8-7.7); NEUT % 77 % (31-73); PLATELET COUNT 281 x10^3/uL (140-400); RED CELL DISTRIBUTION WIDTH 17.1 % (11.5-14.5)
[2019-08-11 07:42] LABS: CALCIUM 8.2 mg/dL (8.5-10.1); CREATININE 0.7 mg/dL (0.6-1.0); GFR 90.5; POTASSIUM 3.7 mmol/L (3.5-5.1)
[2019-08-11] MEDS: CELECOXIB 100 MG CAPSULE. PO SCH ×2 (09:13→20:54)
[2019-08-11] MEDS: GEMFIBROZIL 600 MG TABLET. PO SCH ×2 (09:13→20:54)
[2019-08-11] MEDS: LACTOBACILLUS RHAMNOSUS GG 1 CAPSULE. PO SCH ×2 (09:13→20:54)
--- NOTE | 2019-08-11 09:51 | PDOC ---
[employer] PROGRESS NOTE Chief Complaint Chief Complaint 1. Pyelonephritis, clinically 2. Dyslipidemia on meds 3. Sepsis with NO organ dysfcn 4, Mod PCM 5. Urinary retention calix 08/09 History of Present Illness History of Present Illness 08/11/19 Pt seen and examined in the ICU Pt reports feeling better Pt and prefer to speak [place] Pt and her are eager to leave today Explained that team is awaiting for cultures Chart and labs reviewed D/w RN Wbc is 10, down from 13.8 08/10/19 Pt seen and examined by Dr. King Pt reports feeling slightly better Reports no more rt flank pain' Urine cx still pending Getting zosyn NO fevers Eating only a little Needed calix 08/09 due to urinary retention WBC down to 13 from 18 from 20s Vitals/I&O Vitals/I&O: Vital Signs Date Time Temp Pulse Resp B/P (MAP) Pulse Ox O2 Delivery O2 Flow Rate FiO2 08/11/19 08:30 Room Air 08/11/19 07:00 98.3 61 18 112/61 (78) 97 98.3 I & O 08/10/19 08/10/19 08/11/19 15:00 23:00 07:00 Intake Total 300 ml Output Total 750 ml Balance -750 ml 300 ml Physical Exam General: Alert, Oriented X3, Cooperative, No acute distress, Other (indiscomfort but not in distress- less interested in food) Abdomen: Normal bowel sounds, Soft, No hepatosplenomegaly, No masses, Other (left CVA tenderness) Extremities: No clubbing, No cyanosis, No edema, Normal pulses, No tenderness/swelling Skin: No rashes, No breakdown, No significant lesion Labs Labs: Laboratory Tests Test 08/11/19 06:32 White Blood Count 10.0 x10^3/uL (4.0-11.0) Red Blood Count 3.50 x10^6/uL (3.50-5.40) Hemoglobin 10.0 g/dL (12.0-15.5) Hematocrit 29.8 % (36.0-47.0) Mean Corpuscular Volume 85 fL (79-100) Mean Corpuscular Hemoglobin 29 pg (25-35) Mean Corpuscular Hemoglobin Concent 34 g/dL (31-37) Red Cell Distribution Width 17.1 % (11.5-14.5) Platelet Count 281 x10^3/uL (140-400) Neutrophils (%) (Auto) 77 % (31-73) Lymphocytes (%) (Auto) 15 % (24-48) Monocytes (%) (Auto) 6 % (0-9) Eosinophils (%) (Auto) 1 % (0-3) Basophils (%) (Auto) 1 % (0-3) Neutrophils # (Auto) 7.8 x10^3/uL (1.8-7.7) Lymphocytes # (Auto) 1.5 x10^3/uL (1.0-4.8) Monocytes # (Auto) 0.6 x10^3/uL (0.0-1.1) Eosinophils # (Auto) 0.1 x10^3/uL (0.0-0.7) Basophils # (Auto) 0.1 x10^3/uL (0.0-0.2) Sodium Level 141 mmol/L (136-145) Potassium Level 3.7 mmol/L (3.5-5.1) Chloride Level 109 mmol/L (98-107) Carbon Dioxide Level 23 mmol/L (21-32) Anion Gap 9 (6-14) Blood Urea Nitrogen 9 mg/dL (7-20) Creatinine 0.7 mg/dL (0.6-1.0) Estimated GFR (Cockcroft-Gault) 90.5 Glucose Level 77 mg/dL (70-99) Calcium Level 8.2 mg/dL (8.5-10.1) Review of Systems Review of Systems: Pt denies fever Pt denies ROBERT Assessment and Plan Assessmemt and Plan Problems Medical Problems: (1) Pyelonephritis Status: Acute Assessment Pyelonephritis, clinically Dyslipidemia on meds Sepsis with NO organ dysfunction Urinary retention with calix placement 08/09 Plan IV fluids IV zosyn Awaiting culture results Home meds DVT prophylaxis Full code Comment Review of Relevant I have reviewed the following items juan alberto (where applicable) has been applied. KATY DEY III DO Aug 11, 2019 09:51
[2019-08-11 11:00] VITALS: BP 121/63
[2019-08-11 15:00] VITALS: BP 109/60
[2019-08-11] MEDS ORDERED: VANCOMYCIN 1.75 GM in IV NORMAL SALINE 500ML BAG 500 ML IV ONE (15:30)
[2019-08-11] MEDS: VANCOMYCIN PER PHARMACY MC PRN (16:03)
--- NOTE | 2019-08-11 16:03 | NUR ---
Pharmacy Vancomycin Dosing Note S:Consulted to monitor and dose vancomycin started 08/11/19. O:MARTI [place] is a 44 year old F with UTI . Height: 5 feet, 4 inches Weight: 71.419160 kg [place] Body Weight: 54.70 Adjusted Body Weight: 61.22 Dosing Weight: Actual Other Antibiotics: ZOSYN LABS: Last BUN: 9 Last Creatinine: 0.7 Creatinine Clearance: 99 mL/min Last WBC: 10.0 Last Procalcitonin: Tmax (past 24 hours): 98.3 Microbiology: I/O: 300/750 Drug Levels: Last level: on at Last dose given 08/11/19 at 1540 Vancomycin Dosing: Loading Dose: 1750 mg x1 Dosing Weight: Actual Target Trough: 10-20 A: Based on: Body weight and renal function P: 1. After loading dose, start Vancomycin 1000 mg IV q8h 2. Follow up Trough level on 08/12/19 at 1530 3. Pharmacy will continue to monitor, follow and adjust therapy as needed. STANISLAW NICOLE [facility], 08/11/19 [id number]
[2019-08-11 19:00] VITALS: BP 126/74
[2019-08-11] MEDS: FERROUS SULFATE 325 MG TABLET. PO SCH (20:54)
[2019-08-11 23:00] VITALS: BP 115/61
[2019-08-12] MEDS: IV NORMAL SALINE 1000ML BAG 1,000 ML IV SCH ×3 (00:47→20:30)
[2019-08-12] MEDS: VANCOMYCIN 1 GM in IV NORMAL SALINE 250ML 250 ML IV SCH ×3 (00:49→16:00)
[2019-08-12 03:00] VITALS: BP 118/49
[2019-08-12] MEDS: PIPERACILLIN/TAZOBACTAM 3.375 GM in IV NORMAL SALINE 50ML 50 ML IV SCH ×3 (06:37→18:00)
[2019-08-12 07:00] VITALS: BP 119/61
[2019-08-12 07:38] LABS: BASO # 0.1 x10^3/uL (0.0-0.2); BASO % 1 % (0-3); EOS # 0.1 x10^3/uL (0.0-0.7); EOS % 1 % (0-3); HEMATOCRIT 27.4 % (36.0-47.0); HEMOGLOBIN 9.4 g/dL (12.0-15.5); LYMPH # 1.2 x10^3/uL (1.0-4.8); LYMPH % 16 % (24-48); MEAN CORPUSCULAR HEMOGLOBIN 29 pg (25-35); MEAN CORPUSCULAR HGB CONC 34 g/dL (31-37); MEAN CORPUSCULAR VOLUME 85 fL (79-100); MONO # 0.4 x10^3/uL (0.0-1.1); MONO % 6 % (0-9); NEUT # 5.8 x10^3/uL (1.8-7.7); NEUT % 77 % (31-73); PLATELET COUNT 294 x10^3/uL (140-400); RED BLOOD COUNT 3.22 x10^6/uL (3.50-5.40); RED CELL DISTRIBUTION WIDTH 17.3 % (11.5-14.5); WHITE BLOOD COUNT 7.5 x10^3/uL (4.0-11.0)
[2019-08-12 08:21] LABS: ALBUMIN 2.5 g/dL (3.4-5.0); ALBUMIN/GLOBULIN RATIO 0.7 (1.0-1.7); CALCIUM 8.3 mg/dL (8.5-10.1); CREATININE 0.6 mg/dL (0.6-1.0); GFR 108.1; POTASSIUM 3.8 mmol/L (3.5-5.1); TOTAL BILIRUBIN 0.6 mg/dL (0.2-1.0); TOTAL PROTEIN 6.3 g/dL (6.4-8.2)
[2019-08-12] MEDS: CELECOXIB 100 MG CAPSULE. PO SCH ×2 (08:42→21:34)
[2019-08-12] MEDS: GEMFIBROZIL 600 MG TABLET. PO SCH ×2 (08:42→21:35)
[2019-08-12] MEDS: LACTOBACILLUS RHAMNOSUS GG 1 CAPSULE. PO SCH ×2 (08:42→21:35)
[2019-08-12 11:00] VITALS: BP 135/91
--- NOTE | 2019-08-12 12:33 | NUR ---
SS following up with discharge planning. Pt is currently on room air. No discharge needs noted at this time. Pt is not a citizen. SS will continue to follow for discharge planning.
--- NOTE | 2019-08-12 13:23 | PDOC ---
[employer] PROGRESS NOTE Chief Complaint Chief Complaint 1. Pyelonephritis, clinically 2. Dyslipidemia on meds 3. Sepsis with NO organ dysfcn 4, Mod PCM 5. Urinary retention calix 08/09 History of Present Illness History of Present Illness 08/12/2019 Pt was seen and examined. Pt is in good spirits today and reports that she is eager to be discharged. No reported distress, fever, dysuria, or hematuria. 08/11/19 Pt seen and examined in the ICU Pt reports feeling better Pt and prefer to speak German Pt and her are eager to leave today Explained that team is awaiting for cultures Chart and labs reviewed D/w RN Wbc is 10, down from 13.8 08/10/19 Pt seen and examined by Dr. King Pt reports feeling slightly better Reports no more rt flank pain' Urine cx still pending Getting zosyn NO fevers Eating only a little Needed calix 08/09 due to urinary retention WBC down to 13 from 18 from 20s Vitals/I&O Vitals/I&O: Vital Signs Date Time Temp Pulse Resp B/P (MAP) Pulse Ox O2 Delivery O2 Flow Rate FiO2 08/12/19 11:00 98.5 65 18 135/91 (106) 95 Room Air 98.5 I & O 08/11/19 08/11/19 08/12/19 15:00 23:00 07:00 Intake Total 120 ml Balance 120 ml Physical Exam General: Alert, Oriented X3, Cooperative, No acute distress, Other (indiscomfort but not in distress- less interested in food) Heart: Regular rate Lungs: Clear Abdomen: Normal bowel sounds, Soft, No hepatosplenomegaly, No masses, Other (left CVA tenderness) Extremities: No clubbing, No cyanosis, No edema, Normal pulses, No tenderness/swelling Skin: No rashes, No breakdown, No significant lesion Labs Labs: Laboratory Tests Test 08/12/19 06:50 White Blood Count 7.5 x10^3/uL (4.0-11.0) Red Blood Count 3.22 x10^6/uL (3.50-5.40) Hemoglobin 9.4 g/dL (12.0-15.5) Hematocrit 27.4 % (36.0-47.0) Mean Corpuscular Volume 85 fL (79-100) Mean Corpuscular Hemoglobin 29 pg (25-35) Mean Corpuscular Hemoglobin Concent 34 g/dL (31-37) Red Cell Distribution Width 17.3 % (11.5-14.5) Platelet Count 294 x10^3/uL (140-400) Neutrophils (%) (Auto) 77 % (31-73) Lymphocytes (%) (Auto) 16 % (24-48) Monocytes (%) (Auto) 6 % (0-9) Eosinophils (%) (Auto) 1 % (0-3) Basophils (%) (Auto) 1 % (0-3) Neutrophils # (Auto) 5.8 x10^3/uL (1.8-7.7) Lymphocytes # (Auto) 1.2 x10^3/uL (1.0-4.8) Monocytes # (Auto) 0.4 x10^3/uL (0.0-1.1) Eosinophils # (Auto) 0.1 x10^3/uL (0.0-0.7) Basophils # (Auto) 0.1 x10^3/uL (0.0-0.2) Sodium Level 140 mmol/L (136-145) Potassium Level 3.8 mmol/L (3.5-5.1) Chloride Level 107 mmol/L (98-107) Carbon Dioxide Level 25 mmol/L (21-32) Anion Gap 8 (6-14) Blood Urea Nitrogen 6 mg/dL (7-20) Creatinine 0.6 mg/dL (0.6-1.0) Estimated GFR (Cockcroft-Gault) 108.1 BUN/Creatinine Ratio 10 (6-20) Glucose Level 77 mg/dL (70-99) Calcium Level 8.3 mg/dL (8.5-10.1) Total Bilirubin 0.6 mg/dL (0.2-1.0) Aspartate Amino Transf (AST/SGOT) 21 U/L (15-37) Alanine Aminotransferase (ALT/SGPT) 25 U/L (14-59) Alkaline Phosphatase 105 U/L (46-116) Total Protein 6.3 g/dL (6.4-8.2) Albumin 2.5 g/dL (3.4-5.0) Albumin/Globulin Ratio 0.7 (1.0-1.7) Review of Systems Review of Systems: Denies Fever Denies N/V/D Denies CP Denies SOB Denies dysuria, increased urinary frequency, or hematuria Assessment and Plan Assessmemt and Plan Problems Medical Problems: (1) Pyelonephritis Status: Acute 1. Pyelonephritis, clinically 2. Dyslipidemia on meds 3. Sepsis with NO organ dysfcn 4, Mod PCM 5. Urinary retention calix 08/09 1) Continue IV abx with hopes to trasition pt to po abx on D/C 2) IVF 3) Reviewed labs WBC is now WNL 4) DVT prophylaxis 5) Pain meds prn 6) Full Code Comment Review of Relevant I have reviewed the following items juan alberto (where applicable) has been applied. Medications: Current Medications Medications (Trade) Dose Ordered Sig/Sánchez Route PRN Reason Start Time Stop Time Status Last Admin Dose Admin Vancomycin HCl (Vanco Per Pharmacy) 1 each PRN DAILY PRN MC SEE COMMENTS 08/11/19 14:45 08/11/19 16:03 Vancomycin HCl 1.75 gm/Sodium Chloride 500 ml @ 250 mls/hr 1X ONCE IV 08/11/19 15:30 08/11/19 17:29 DC 08/11/19 15:40 Vancomycin HCl 1 gm/Sodium Chloride 250 ml @ 250 mls/hr Q8H IV 08/12/19 00:00 08/12/19 08:42 KATY DEY III DO Aug 12, 2019 13:23
[2019-08-12 15:00] VITALS: BP 141/79
[2019-08-12 16:30] LABS: VANC TR 15.6 mcg/mL (10.0-20.0)
[2019-08-12] MEDS: HYDROcodone/APAP 5/325MG 1 TAB TABLET PO PRN ×2 (16:32→21:35)
[2019-08-12] MEDS: VANCOMYCIN PER PHARMACY MC PRN (16:42)
--- NOTE | 2019-08-12 16:42 | NUR ---
Pharmacy Vancomycin Dosing Note S: Consulted to monitor and dose vancomycin started 08/11/19. O: MARTI [place] is a 44 year old F with UTI, . Other Antibiotics: ZOSYN LABS: Last BUN: 6 Last Creatinine: 0.6 Creatinine Clearance: 99 mL/min Last WBC: 7.5 Tmax (past 24 hours): 98.3 Drug Levels: Last Trough level: 15.6 on 08/12/19 at 1535 Last dose given 08/12/19 at 0842 Vancomycin Dosing: Dosing Weight: Actual Target Trough: 10-20 A: Based on: VANCO dosing guidelines P: 1. Continue Vancomycin 1000 mg IV q8h 2. Follow up Trough level in 5-7 days or if renal function changes. 3. Pharmacy will continue to monitor, follow and adjust therapy as needed. ELZBIETA COMBS [facility], 08/12/19 [id number]
[2019-08-12 19:00] VITALS: BP 138/69
[2019-08-12] MEDS: FERROUS SULFATE 325 MG TABLET. PO SCH (21:35)
[2019-08-12 22:56] VITALS: BP 125/73
[2019-08-13] MEDS: HYDROcodone/APAP 5/325MG 1 TAB TABLET PO PRN (02:55)
[2019-08-13 02:58] VITALS: BP 114/52
[2019-08-13 04:16] LABS: BASO % 1 % (0-3); EOS # 0.1 x10^3/uL (0.0-0.7); EOS % 2 % (0-3); HEMATOCRIT 31.3 % (36.0-47.0); HEMOGLOBIN 10.6 g/dL (12.0-15.5); LYMPH # 1.5 x10^3/uL (1.0-4.8); LYMPH % 24 % (24-48); MEAN CORPUSCULAR HEMOGLOBIN 29 pg (25-35); MEAN CORPUSCULAR HGB CONC 34 g/dL (31-37); MEAN CORPUSCULAR VOLUME 85 fL (79-100); MONO # 0.4 x10^3/uL (0.0-1.1); MONO % 7 % (0-9); NEUT % 66 % (31-73); PLATELET COUNT 333 x10^3/uL (140-400); RED CELL DISTRIBUTION WIDTH 17.3 % (11.5-14.5)
[2019-08-13 04:48] LABS: ALBUMIN 2.8 g/dL (3.4-5.0); ALBUMIN/GLOBULIN RATIO 0.7 (1.0-1.7); CREATININE 0.6 mg/dL (0.6-1.0); GFR 108.1; TOTAL BILIRUBIN 0.4 mg/dL (0.2-1.0)
[2019-08-13] MEDS: PIPERACILLIN/TAZOBACTAM 3.375 GM in IV NORMAL SALINE 50ML 50 ML IV SCH ×3 (06:00)
[2019-08-13] MEDS: IV NORMAL SALINE 1000ML BAG 1,000 ML IV SCH (06:30)
[2019-08-13 07:00] VITALS: BP 128/71
[2019-08-13] MEDS: VANCOMYCIN 1 GM in IV NORMAL SALINE 250ML 250 ML IV SCH ×3 (07:35)
--- NOTE | 2019-08-13 08:43 | PDOC ---
PROGRESS NOTES Chief Complaint Chief Complaint 1. Pyelonephritis, clinically 2. Dyslipidemia on meds 3. Sepsis with NO organ dysfcn 4, Mod PCM 5. Urinary retention calix 08/09 History of Present Illness History of Present Illness Ms Cornejo is a 44yo F with HLD admitted for sepsis 2/2 UTI, found to have staph saprophyticus this morning on final culture. She is feeling improved. Tolerated PO bactrim well. plan to take for 7 additional days. No CP or SOB, abdominal pain improved. 08/12/2019 Pt was seen and examined. Pt is in good spirits today and reports that she is eager to be discharged. No reported distress, fever, dysuria, or hematuria. 08/11/19 Pt seen and examined in the ICU Pt reports feeling better Pt and prefer to speak Citizen Of [place] Pt and her are eager to leave today Explained that team is awaiting for cultures Chart and labs reviewed D/w RN Wbc is 10, down from 13.8 08/10/19 Pt seen and examined by Dr. King Pt reports feeling slightly better Reports no more rt flank pain' Urine cx still pending Getting zosyn NO fevers Eating only a little Needed calix 08/09 due to urinary retention WBC down to 13 from 18 from 20s Vitals Vitals Vital Signs Date Time Temp Pulse Resp B/P (MAP) Pulse Ox O2 Delivery O2 Flow Rate FiO2 08/13/19 07:00 98.0 60 16 128/71 (90) 96 Room Air 98.0 Physical Exam General: Alert, Oriented X3, Cooperative, No acute distress, Other (indiscomfort but not in distress- less interested in food) Heart: Regular rate Lungs: Clear Abdomen: Normal bowel sounds, Soft, No hepatosplenomegaly, No masses, Other (left CVA tenderness) Extremities: No clubbing, No cyanosis, No edema, Normal pulses, No tenderness/swelling Skin: No rashes, No breakdown, No significant lesion Labs LABS Laboratory Tests Test 08/12/19 15:35 08/13/19 04:00 Vancomycin Level Trough 15.6 mcg/mL (10.0-20.0) Vancomycin Last Dose Date 08/12/19 Vancomycin Last Dose Time 0800 White Blood Count 6.0 x10^3/uL (4.0-11.0) Red Blood Count 3.70 x10^6/uL (3.50-5.40) Hemoglobin 10.6 g/dL (12.0-15.5) Hematocrit 31.3 % (36.0-47.0) Mean Corpuscular Volume 85 fL (79-100) Mean Corpuscular Hemoglobin 29 pg (25-35) Mean Corpuscular Hemoglobin Concent 34 g/dL (31-37) Red Cell Distribution Width 17.3 % (11.5-14.5) Platelet Count 333 x10^3/uL (140-400) Neutrophils (%) (Auto) 66 % (31-73) Lymphocytes (%) (Auto) 24 % (24-48) Monocytes (%) (Auto) 7 % (0-9) Eosinophils (%) (Auto) 2 % (0-3) Basophils (%) (Auto) 1 % (0-3) Neutrophils # (Auto) 4.0 x10^3/uL (1.8-7.7) Lymphocytes # (Auto) 1.5 x10^3/uL (1.0-4.8) Monocytes # (Auto) 0.4 x10^3/uL (0.0-1.1) Eosinophils # (Auto) 0.1 x10^3/uL (0.0-0.7) Basophils # (Auto) 0.0 x10^3/uL (0.0-0.2) Sodium Level 138 mmol/L (136-145) Potassium Level 4.0 mmol/L (3.5-5.1) Chloride Level 105 mmol/L (98-107) Carbon Dioxide Level 27 mmol/L (21-32) Anion Gap 6 (6-14) Blood Urea Nitrogen 6 mg/dL (7-20) Creatinine 0.6 mg/dL (0.6-1.0) Estimated GFR (Cockcroft-Gault) 108.1 BUN/Creatinine Ratio 10 (6-20) Glucose Level 75 mg/dL (70-99) Calcium Level 9.0 mg/dL (8.5-10.1) Total Bilirubin 0.4 mg/dL (0.2-1.0) Aspartate Amino Transf (AST/SGOT) 16 U/L (15-37) Alanine Aminotransferase (ALT/SGPT) 26 U/L (14-59) Alkaline Phosphatase 106 U/L (46-116) Total Protein 7.0 g/dL (6.4-8.2) Albumin 2.8 g/dL (3.4-5.0) Albumin/Globulin Ratio 0.7 (1.0-1.7) Assessment and Plan Assessmemt and Plan Problems Medical Problems: (1) Pyelonephritis Status: Acute Comment Review of Relevant I have reviewed the following items juan alberto (where applicable) has been applied. Labs Laboratory Tests Test 08/12/19 06:50 08/12/19 15:35 08/13/19 04:00 White Blood Count 7.5 x10^3/uL (4.0-11.0) 6.0 x10^3/uL (4.0-11.0) Red Blood Count 3.22 x10^6/uL (3.50-5.40) 3.70 x10^6/uL (3.50-5.40) Hemoglobin 9.4 g/dL (12.0-15.5) 10.6 g/dL (12.0-15.5) Hematocrit 27.4 % (36.0-47.0) 31.3 % (36.0-47.0) Mean Corpuscular Volume 85 fL (79-100) 85 fL (79-100) Mean Corpuscular Hemoglobin 29 pg (25-35) 29 pg (25-35) Mean Corpuscular Hemoglobin Concent 34 g/dL (31-37) 34 g/dL (31-37) Red Cell Distribution Width 17.3 % (11.5-14.5) 17.3 % (11.5-14.5) Platelet Count 294 x10^3/uL (140-400) 333 x10^3/uL (140-400) Neutrophils (%) (Auto) 77 % (31-73) 66 % (31-73) Lymphocytes (%) (Auto) 16 % (24-48) 24 % (24-48) Monocytes (%) (Auto) 6 % (0-9) 7 % (0-9) Eosinophils (%) (Auto) 1 % (0-3) 2 % (0-3) Basophils (%) (Auto) 1 % (0-3) 1 % (0-3) Neutrophils # (Auto) 5.8 x10^3/uL (1.8-7.7) 4.0 x10^3/uL (1.8-7.7) Lymphocytes # (Auto) 1.2 x10^3/uL (1.0-4.8) 1.5 x10^3/uL (1.0-4.8) Monocytes # (Auto) 0.4 x10^3/uL (0.0-1.1) 0.4 x10^3/uL (0.0-1.1) Eosinophils # (Auto) 0.1 x10^3/uL (0.0-0.7) 0.1 x10^3/uL (0.0-0.7) Basophils # (Auto) 0.1 x10^3/uL (0.0-0.2) 0.0 x10^3/uL (0.0-0.2) Sodium Level 140 mmol/L (136-145) 138 mmol/L (136-145) Potassium Level 3.8 mmol/L (3.5-5.1) 4.0 mmol/L (3.5-5.1) Chloride Level 107 mmol/L (98-107) 105 mmol/L (98-107) Carbon Dioxide Level 25 mmol/L (21-32) 27 mmol/L (21-32) Anion Gap 8 (6-14) 6 (6-14) Blood Urea Nitrogen 6 mg/dL (7-20) 6 mg/dL (7-20) Creatinine 0.6 mg/dL (0.6-1.0) 0.6 mg/dL (0.6-1.0) Estimated GFR (Cockcroft-Gault) 108.1 108.1 BUN/Creatinine Ratio 10 (6-20) 10 (6-20) Glucose Level 77 mg/dL (70-99) 75 mg/dL (70-99) Calcium Level 8.3 mg/dL (8.5-10.1) 9.0 mg/dL (8.5-10.1) Total Bilirubin 0.6 mg/dL (0.2-1.0) 0.4 mg/dL (0.2-1.0) Aspartate Amino Transf (AST/SGOT) 21 U/L (15-37) 16 U/L (15-37) Alanine Aminotransferase (ALT/SGPT) 25 U/L (14-59) 26 U/L (14-59) Alkaline Phosphatase 105 U/L (46-116) 106 U/L (46-116) Total Protein 6.3 g/dL (6.4-8.2) 7.0 g/dL (6.4-8.2) Albumin 2.5 g/dL (3.4-5.0) 2.8 g/dL (3.4-5.0) Albumin/Globulin Ratio 0.7 (1.0-1.7) 0.7 (1.0-1.7) Vancomycin Level Trough 15.6 mcg/mL (10.0-20.0) Vancomycin Last Dose Date 08/12/19 Vancomycin Last Dose Time 0800 Laboratory Tests Test 08/12/19 15:35 08/13/19 04:00 Vancomycin Level Trough 15.6 mcg/mL (10.0-20.0) Vancomycin Last Dose Date 08/12/19 Vancomycin Last Dose Time 0800 White Blood Count 6.0 x10^3/uL (4.0-11.0) Red Blood Count 3.70 x10^6/uL (3.50-5.40) Hemoglobin 10.6 g/dL (12.0-15.5) Hematocrit 31.3 % (36.0-47.0) Mean Corpuscular Volume 85 fL (79-100) Mean Corpuscular Hemoglobin 29 pg (25-35) Mean Corpuscular Hemoglobin Concent 34 g/dL (31-37) Red Cell Distribution Width 17.3 % (11.5-14.5) Platelet Count 333 x10^3/uL (140-400) Neutrophils (%) (Auto) 66 % (31-73) Lymphocytes (%) (Auto) 24 % (24-48) Monocytes (%) (Auto) 7 % (0-9) Eosinophils (%) (Auto) 2 % (0-3) Basophils (%) (Auto) 1 % (0-3) Neutrophils # (Auto) 4.0 x10^3/uL (1.8-7.7) Lymphocytes # (Auto) 1.5 x10^3/uL (1.0-4.8) Monocytes # (Auto) 0.4 x10^3/uL (0.0-1.1) Eosinophils # (Auto) 0.1 x10^3/uL (0.0-0.7) Basophils # (Auto) 0.0 x10^3/uL (0.0-0.2) Sodium Level 138 mmol/L (136-145) Potassium Level 4.0 mmol/L (3.5-5.1) Chloride Level 105 mmol/L (98-107) Carbon Dioxide Level 27 mmol/L (21-32) Anion Gap 6 (6-14) Blood Urea Nitrogen 6 mg/dL (7-20) Creatinine 0.6 mg/dL (0.6-1.0) Estimated GFR (Cockcroft-Gault) 108.1 BUN/Creatinine Ratio 10 (6-20) Glucose Level 75 mg/dL (70-99) Calcium Level 9.0 mg/dL (8.5-10.1) Total Bilirubin 0.4 mg/dL (0.2-1.0) Aspartate Amino Transf (AST/SGOT) 16 U/L (15-37) Alanine Aminotransferase (ALT/SGPT) 26 U/L (14-59) Alkaline Phosphatase 106 U/L (46-116) Total Protein 7.0 g/dL (6.4-8.2) Albumin 2.8 g/dL (3.4-5.0) Albumin/Globulin Ratio 0.7 (1.0-1.7) Microbiology 08/08/19 Urine Culture - Final, Complete 08/08/19 Urine Culture Result 1 (KEKE) - Final, Complete Medications Current Medications Morphine Sulfate (Morphine Sulfate) 4 mg PRN Q15MIN PRN IV/SQ PAIN GREATER THAN 3/10 Last administered on 08/08/19at 19:54; Start 08/08/19 at 19:00; Stop 09/17 at 09:52; Status DC Sodium Chloride 1,000 ml @ 1,000 mls/hr Q1H IV Last administered on 08/08/19at 19:20; Start 08/08/19 at 18:54; Stop 08/08/19 at 19:53; Status DC Ondansetron HCl (Zofran) 4 mg 1X ONCE IV Last administered on 08/08/19at 19:1 8; Start 08/08/19 at 19:00; Stop 08/08/19 at 19:01; Status DC Piperacillin Sod/ Tazobactam Sod 4.5 gm/Sodium Chloride 100 ml @ 200 mls/hr 1X ONCE IV Last administered on 08/08/19 19:47; Start 08/08/19 at 20:00; Stop 08/08/19 at 20:29; Status DC Iohexol (Omnipaque 300 Mg/ml) 75 ml 1X ONCE IV Last administered on 08/08/19at 20:28; Start 08/08/19 at 20:15; Stop 08/08/19 at 20:16; Status DC Info (CONTRAST GIVEN -- Rx MONITORING) 1 each PRN DAILY PRN MC SEE COMMENTS; Start 08/08/19 at 20:15; Stop 08/10/19 at 20:14; Status DC Ondansetron HCl (Zofran) 4 mg PRN Q8HRS PRN IV NAUSEA/VOMITING 1ST CHOICE; Start 08/08/19 at 21:15; Stop 08/09/19 at 08:16; Status DC Morphine Sulfate (Morphine Sulfate) 4 mg PRN Q2HR PRN IV SEVERE PAIN 7-10 Last administered on 08/09/19at 08:36; Start 08/08/19 at 21:15; Stop 08/09/19 at 09:52; Status DC Sodium Chloride 1,000 ml @ 100 mls/hr Q10H IV Last administered on 08/09/19at 09:22; Start 08/08/19 at 21:30; Stop 08/09/19 at 21:29; Status DC Acetaminophen (Tylenol) 650 mg PRN Q4HRS PRN PO FEVER Last administered on 08/09/19at 03:55; Start 08/08/19 at 21:15; Stop 08/09/19 at 21:14; Status DC Ondansetron HCl (Zofran) 4 mg PRN Q6HRS PRN IV NAUSEA/VOMITING 1ST CHOICE Last administered on 08/10/19at 21:51; Start 08/09/19 at 08:15 Ceftriaxone Sodium (Rocephin) 1 gm Q24H IVP Last administered on 08/09/19at 09:18; Start 08/09/19 at 09:00; Stop 08/09/19 at 09:38; Status DC Ergocalciferol (Vitamin D2) 50,000 unit WEEKLY PO Last administered on 08/09/19at 08:35; Start 08/09/19 at 09:00 Ferrous Sulfate (Feosol) 325 mg HS PO Last administered on 08/12/19 21:35; Start 08/09/19 at 21:00 Gemfibrozil (Lopid) 600 mg BID PO Last administered on 08/12/19 21:35; Start 08/09/19 at 09:00 Celecoxib (CeleBREX) 100 mg BID PO Last administered on 08/12/19 21:34; Start 08/09/19 at 09:00 Acetaminophen/ Hydrocodone Bitart (Lortab 5/325) 1 tab PRN Q4HRS PRN PO MODERATE PAIN Last administered on 08/13/19at 02:55; Start 08/09/19 at 08:30 Zolpidem Tartrate (Ambien) 5 mg PRN QHS PRN PO INSOMNIA; Start 08/09/19 at 08:30 Piperacillin Sod/ Tazobactam Sod (Zosyn Per Pharmacy) 1 each PRN DAILY PRN MC SEE COMMENTS; Start 08/09/19 at 09:45 Piperacillin Sod/ Tazobactam Sod 3.375 gm/Sodium Chloride 50 ml @ 100 mls/hr Q6HRS IV Last administered on 08/12/19at 12:34; Start 08/09/19 at 10:00 Morphine Sulfate (Morphine Sulfate) 2 mg PRN Q2HR PRN IV MODERATE TO SEVERE PAIN; Start 08/09/19 at 09:45 Lactobacillus Rhamnosus (Culturelle) 1 cap BID PO Last administered on 08/12/19at 21:35; Start 08/09/19 at 21:00 Sodium Chloride 1,000 ml @ 100 mls/hr Q10H IV Last administered on 08/12/19at 11:29; Start 08/10/19 at 08:30 Vancomycin HCl (Vanco Per Pharmacy) 1 each PRN DAILY PRN MC SEE COMMENTS Last administered on 08/12/19 16:42; Start 08/11/19 at 14:45 Vancomycin HCl 1.75 gm/Sodium Chloride 500 ml @ 250 mls/hr 1X ONCE IV Last administered on 08/11/19at 15:40; Start 08/11/19 at 15:30; Stop 08/11/19 at 17:29; Status DC Vancomycin HCl 1 gm/Sodium Chloride 250 ml @ 250 mls/hr Q8H IV Last administered on 08/12/19at 08:42; Start 08/12/19 at 00:00 Vancomycin HCl (Vancomycin Trough Level) 1 each 1X ONCE MC Last administered on 08/12/19at 15:30; Start 08/12/19 at 15:30; Stop 08/12/19 at 15:31; Status DC Active Scripts Active Reported Gemfibrozil 600 Mg Tablet 600 Mg PO BID Vitamin D2 (Ergocalciferol (Vitamin D2)) 50,000 Unit Capsule 1 Cap PO WEEKLY 28 Days Ferrous Sulfate 325 Mg Tablet 1 Tab PO HS Vitals/I & O Vital Sign - Last 24 Hours 08/12/19 08/12/19 08/12/19 08/12/19 11:00 15:00 16:32 19:00 Temp 98.5 98.4 98.3 98.5 98.4 98.3 Pulse 65 60 59 Resp 18 18 18 B/P (MAP) 135/91 (106) 141/79 (99) 138/69 (92) Pulse Ox 95 100 98 O2 Delivery Room Air Room Air Room Air Room Air 08/12/19 08/12/19 08/12/19 08/13/19 21:35 22:35 22:56 02:55 Temp 98.6 98.6 Pulse 53 Resp 18 B/P (MAP) 125/73 (90) Pulse Ox 98 98 98 98 O2 Delivery Room Air Room Air Room Air Room Air 08/13/19 08/13/19 08/13/19 02:58 03:55 07:00 Temp 98.1 98.0 98.1 98.0 Pulse 51 60 Resp 18 16 B/P (MAP) 114/52 (72) 128/71 (90) Pulse Ox 99 99 96 O2 Delivery Room Air Room Air Room Air GURPREET VYAS MD Aug 13, 2019 08:43
[2019-08-13] MEDS: CELECOXIB 100 MG CAPSULE. PO SCH (08:52)
[2019-08-13] MEDS: GEMFIBROZIL 600 MG TABLET. PO SCH (08:52)
[2019-08-13] MEDS: LACTOBACILLUS RHAMNOSUS GG 1 CAPSULE. PO SCH (08:52)
[2019-08-13] MEDS ORDERED: SMZ/TMP 800/160MG TABLET. PO SCH (09:00)
[2019-08-13] MEDS ORDERED: Smz/Tmp 800/160MG PO (09:35)
[2019-08-13 11:00] VITALS: BP 125/63
--- NOTE | 2019-08-13 15:39 | PDOC3 ---
Discharge Summary Visit Information Date of Admission: Aug 08, 2019 Date of Discharge: Aug 13, 2019 Admitting Diagnosis: Pyelonephritis Final Diagnosis Problems Medical Problems: (1) Pyelonephritis Status: Acute Brief Hospital Course Allergies Allergies Coded Allergies Type Severity Reaction Last Updated Verified No Known Drug Allergies 08/08/19 No Vital Signs Vital Signs Date Time Temp Pulse Resp B/P (MAP) Pulse Ox O2 Delivery O2 Flow Rate FiO2 08/13/19 11:00 97.8 69 18 125/63 (83) 94 Room Air 97.8 Lab Results Laboratory Tests Test 08/12/19 06:50 08/12/19 15:35 08/13/19 04:00 White Blood Count 7.5 x10^3/uL (4.0-11.0) 6.0 x10^3/uL (4.0-11.0) Red Blood Count 3.22 x10^6/uL (3.50-5.40) 3.70 x10^6/uL (3.50-5.40) Hemoglobin 9.4 g/dL (12.0-15.5) 10.6 g/dL (12.0-15.5) Hematocrit 27.4 % (36.0-47.0) 31.3 % (36.0-47.0) Mean Corpuscular Volume 85 fL (79-100) 85 fL (79-100) Mean Corpuscular Hemoglobin 29 pg (25-35) 29 pg (25-35) Mean Corpuscular Hemoglobin Concent 34 g/dL (31-37) 34 g/dL (31-37) Red Cell Distribution Width 17.3 % (11.5-14.5) 17.3 % (11.5-14.5) Platelet Count 294 x10^3/uL (140-400) 333 x10^3/uL (140-400) Neutrophils (%) (Auto) 77 % (31-73) 66 % (31-73) Lymphocytes (%) (Auto) 16 % (24-48) 24 % (24-48) Monocytes (%) (Auto) 6 % (0-9) 7 % (0-9) Eosinophils (%) (Auto) 1 % (0-3) 2 % (0-3) Basophils (%) (Auto) 1 % (0-3) 1 % (0-3) Neutrophils # (Auto) 5.8 x10^3/uL (1.8-7.7) 4.0 x10^3/uL (1.8-7.7) Lymphocytes # (Auto) 1.2 x10^3/uL (1.0-4.8) 1.5 x10^3/uL (1.0-4.8) Monocytes # (Auto) 0.4 x10^3/uL (0.0-1.1) 0.4 x10^3/uL (0.0-1.1) Eosinophils # (Auto) 0.1 x10^3/uL (0.0-0.7) 0.1 x10^3/uL (0.0-0.7) Basophils # (Auto) 0.1 x10^3/uL (0.0-0.2) 0.0 x10^3/uL (0.0-0.2) Sodium Level 140 mmol/L (136-145) 138 mmol/L (136-145) Potassium Level 3.8 mmol/L (3.5-5.1) 4.0 mmol/L (3.5-5.1) Chloride Level 107 mmol/L (98-107) 105 mmol/L (98-107) Carbon Dioxide Level 25 mmol/L (21-32) 27 mmol/L (21-32) Anion Gap 8 (6-14) 6 (6-14) Blood Urea Nitrogen 6 mg/dL (7-20) 6 mg/dL (7-20) Creatinine 0.6 mg/dL (0.6-1.0) 0.6 mg/dL (0.6-1.0) Estimated GFR (Cockcroft-Gault) 108.1 108.1 BUN/Creatinine Ratio 10 (6-20) 10 (6-20) Glucose Level 77 mg/dL (70-99) 75 mg/dL (70-99) Calcium Level 8.3 mg/dL (8.5-10.1) 9.0 mg/dL (8.5-10.1) Total Bilirubin 0.6 mg/dL (0.2-1.0) 0.4 mg/dL (0.2-1.0) Aspartate Amino Transf (AST/SGOT) 21 U/L (15-37) 16 U/L (15-37) Alanine Aminotransferase (ALT/SGPT) 25 U/L (14-59) 26 U/L (14-59) Alkaline Phosphatase 105 U/L (46-116) 106 U/L (46-116) Total Protein 6.3 g/dL (6.4-8.2) 7.0 g/dL (6.4-8.2) Albumin 2.5 g/dL (3.4-5.0) 2.8 g/dL (3.4-5.0) Albumin/Globulin Ratio 0.7 (1.0-1.7) 0.7 (1.0-1.7) Vancomycin Level Trough 15.6 mcg/mL (10.0-20.0) Vancomycin Last Dose Date 08/12/19 Vancomycin Last Dose Time 0800 Laboratory Tests Test 08/13/19 04:00 White Blood Count 6.0 x10^3/uL (4.0-11.0) Red Blood Count 3.70 x10^6/uL (3.50-5.40) Hemoglobin 10.6 g/dL (12.0-15.5) Hematocrit 31.3 % (36.0-47.0) Mean Corpuscular Volume 85 fL (79-100) Mean Corpuscular Hemoglobin 29 pg (25-35) Mean Corpuscular Hemoglobin Concent 34 g/dL (31-37) Red Cell Distribution Width 17.3 % (11.5-14.5) Platelet Count 333 x10^3/uL (140-400) Neutrophils (%) (Auto) 66 % (31-73) Lymphocytes (%) (Auto) 24 % (24-48) Monocytes (%) (Auto) 7 % (0-9) Eosinophils (%) (Auto) 2 % (0-3) Basophils (%) (Auto) 1 % (0-3) Neutrophils # (Auto) 4.0 x10^3/uL (1.8-7.7) Lymphocytes # (Auto) 1.5 x10^3/uL (1.0-4.8) Monocytes # (Auto) 0.4 x10^3/uL (0.0-1.1) Eosinophils # (Auto) 0.1 x10^3/uL (0.0-0.7) Basophils # (Auto) 0.0 x10^3/uL (0.0-0.2) Sodium Level 138 mmol/L (136-145) Potassium Level 4.0 mmol/L (3.5-5.1) Chloride Level 105 mmol/L (98-107) Carbon Dioxide Level 27 mmol/L (21-32) Anion Gap 6 (6-14) Blood Urea Nitrogen 6 mg/dL (7-20) Creatinine 0.6 mg/dL (0.6-1.0) Estimated GFR (Cockcroft-Gault) 108.1 BUN/Creatinine Ratio 10 (6-20) Glucose Level 75 mg/dL (70-99) Calcium Level 9.0 mg/dL (8.5-10.1) Total Bilirubin 0.4 mg/dL (0.2-1.0) Aspartate Amino Transf (AST/SGOT) 16 U/L (15-37) Alanine Aminotransferase (ALT/SGPT) 26 U/L (14-59) Alkaline Phosphatase 106 U/L (46-116) Total Protein 7.0 g/dL (6.4-8.2) Albumin 2.8 g/dL (3.4-5.0) Albumin/Globulin Ratio 0.7 (1.0-1.7) Brief Hospital Course Ms Cornejo is a 44yo F with HLD admitted for sepsis 2/2 UTI, Needed calix 10/11 due to urinary retention WBC down to 13 from 18 from 20s after zosyn dosing for 4 days. She was found to have staph saprophyticus this morning on final culture. She is feeling improved. Tolerated PO bactrim well. plan to take for 7 additional days. No CP or SOB, abdominal pain improved. Problem list: Pyelonephritis, clinically Dyslipidemia on meds Sepsis with NO organ dysfcn Mod PCM Urinary retention calix 10/11 Greater than 30 minutes spent on d/c Discharge Information Condition at Discharge: Improved Follow Up: Weeks (1) Disposition/Orders: D/C to Home Scheduled Ergocalciferol (Vitamin D2) (Vitamin D2) 50,000 Unit Capsule, 1 CAP PO WEEKLY for supplement for 28 Days, #4 Ref 0 (Reported) Entered as Reported by: YRN OVALLE RN on 08/09/19 [id number] Last Taken: Unknown Dose on 08/03/19 Last Action: Continued on 08/09/19815 by NYASIA ROBERTS Ferrous Sulfate (Ferrous Sulfate) 325 Mg Tablet, 1 TAB PO HS for anemia, #30 Ref 3 (Reported) Entered as Reported by: YRN OVALLE RN on 08/09/19514 Last Taken: UNKNOWN on Unknown Date & Time Last Action: Continued on 08/09/19815 by NYASIA ROBERTS Gemfibrozil (Gemfibrozil) 600 Mg Tablet, 600 MG PO BID for high cholesterol, (Reported) Entered as Reported by: YRN OVALLE RN on 08/09/19514 Last Taken: UNKNOWN on Unknown Date & Time Last Action: Continued on 08/09/19815 by NYASIA ROBERTS [Smz/Tmp 800/160MG] 1 TAB TABLET, 1 TAB PO BID for UTI for 7 Days, #14 Prescribed by: GURPREET VYAS MD on 08/13/19 [id number] GURPREET VYAS MD Aug 13, 2019 15:39
== END 2019-08-13 12:06 | disposition home or self-care (01) | DRG 872 ==
LOC: ER 18:00 → 4 NORTH 21:11
PROVIDERS: ADMIT Internal Medicine; ATTEND Internal Medicine
DX: A41.9 Sepsis, unspecified organism (principal); N12 Tubulo-interstitial nephritis, not specified as acute or chronic; E44.0 Moderate protein-calorie malnutrition; E78.5 Hyperlipidemia, unspecified; Z82.49 Family history of ischemic heart disease and other diseases of the circulatory system; Z79.899 Other long term (current) drug therapy; Z68.27 Body mass index [BMI] 27.0-27.9, adult
CPT/HCPCS: 36415; 74177; 80048; 80053; 80202; 81001; 81025; 83690; 85007; 85025; 87086; 87804; 96365; 96375; J0696; J2270; J2405; J2543; J3370; J7030; J7040; J7050; Q9967; 99285-25; G0378